=== PATIENT | male | born 1960 | race Two or more races ===

== ENCOUNTER 2020-11-05 08:20 | Outpatient (REF) | payer OTHER, SELFPAY ==
--- NOTE | ~2020-11-05 | XR_ITS ---
EXAMINATION: LUMBAR SPINE, RIGHT HIP, RIGHT RIBS WITH CHEST X-RAY AND RIGHT ELBOW. CLINICAL INFORMATION: Low back pain, right hip pain right rib pain and right elbow pain. COMPARISON: None TECHNIQUE: Lumbar spine 3 views. Right hip 2 views. Right elbow 3 views. Chest and right RIBS 4 views. FINDINGS: Lumbar spine: There is normal lumbar lordosis. There is loss of L5-S1 disc height. Rest the disc heights are normal. The vertebral heights and alignment is normal. There is mild ventral superior endplate spurring at the L4 and L5 vertebra and bridging osteophytes at the L5-S1 and T12-L1 disc levels. Mild anterior superior endplate deformity at L4 vertebra is noted. No visible acute fracture, dislocation or lytic process seen. Right hip: There is a total right hip prosthesis with the prosthetic components in satisfactory alignment. No visible prosthetic loosening seen. The soft tissues are normal. No fracture noted. Chest and right RIBS: The lungs are well-expanded and clear. Heart size and pulmonary vascularity is normal. There is mild spondylosis of dorsal spine. No lytic process seen. Right elbow: There is no visible acute fracture, dislocation or joint effusion. There is moderate posterior elbow joint spurring and posterior olecranon process enthesophyte. XR/XR ribs RT min 3V w CXR1V IMPRESSION: Disc changes L5-S1 disc levels with moderate bridging osteophyte at L5-S1 and T12-L1 disc levels. No visible acute fracture, dislocation or subluxation seen. There is a total right hip prosthesis with prosthetic components in satisfactory alignment. Healing plate and screws for an old healed fracture of the acetabulum is noted. No prosthetic loosening seen. There is no acute fracture or dislocation right elbow. There is degenerative spurring and enthesophyte along the posterior olecranon process. Unremarkable chest exam. Unremarkable right rib exam.
--- NOTE | ~2020-11-05 | XR_ITS ---
EXAMINATION: LUMBAR SPINE, RIGHT HIP, RIGHT RIBS WITH CHEST X-RAY AND RIGHT ELBOW. CLINICAL INFORMATION: Low back pain, right hip pain right rib pain and right elbow pain. COMPARISON: None TECHNIQUE: Lumbar spine 3 views. Right hip 2 views. Right elbow 3 views. Chest and right RIBS 4 views. FINDINGS: Lumbar spine: There is normal lumbar lordosis. There is loss of L5-S1 disc height. Rest the disc heights are normal. The vertebral heights and alignment is normal. There is mild ventral superior endplate spurring at the L4 and L5 vertebra and bridging osteophytes at the L5-S1 and T12-L1 disc levels. Mild anterior superior endplate deformity at L4 vertebra is noted. No visible acute fracture, dislocation or lytic process seen. Right hip: There is a total right hip prosthesis with the prosthetic components in satisfactory alignment. No visible prosthetic loosening seen. The soft tissues are normal. No fracture noted. Chest and right RIBS: The lungs are well-expanded and clear. Heart size and pulmonary vascularity is normal. There is mild spondylosis of dorsal spine. No lytic process seen. Right elbow: There is no visible acute fracture, dislocation or joint effusion. There is moderate posterior elbow joint spurring and posterior olecranon process enthesophyte. XR/XR lumbar spine 2-3V IMPRESSION: Disc changes L5-S1 disc levels with moderate bridging osteophyte at L5-S1 and T12-L1 disc levels. No visible acute fracture, dislocation or subluxation seen. There is a total right hip prosthesis with prosthetic components in satisfactory alignment. Healing plate and screws for an old healed fracture of the acetabulum is noted. No prosthetic loosening seen. There is no acute fracture or dislocation right elbow. There is degenerative spurring and enthesophyte along the posterior olecranon process. Unremarkable chest exam. Unremarkable right rib exam.
--- NOTE | ~2020-11-05 | XR_ITS ---
EXAMINATION: LUMBAR SPINE, RIGHT HIP, RIGHT RIBS WITH CHEST X-RAY AND RIGHT ELBOW. CLINICAL INFORMATION: Low back pain, right hip pain right rib pain and right elbow pain. COMPARISON: None TECHNIQUE: Lumbar spine 3 views. Right hip 2 views. Right elbow 3 views. Chest and right RIBS 4 views. FINDINGS: Lumbar spine: There is normal lumbar lordosis. There is loss of L5-S1 disc height. Rest the disc heights are normal. The vertebral heights and alignment is normal. There is mild ventral superior endplate spurring at the L4 and L5 vertebra and bridging osteophytes at the L5-S1 and T12-L1 disc levels. Mild anterior superior endplate deformity at L4 vertebra is noted. No visible acute fracture, dislocation or lytic process seen. Right hip: There is a total right hip prosthesis with the prosthetic components in satisfactory alignment. No visible prosthetic loosening seen. The soft tissues are normal. No fracture noted. Chest and right RIBS: The lungs are well-expanded and clear. Heart size and pulmonary vascularity is normal. There is mild spondylosis of dorsal spine. No lytic process seen. Right elbow: There is no visible acute fracture, dislocation or joint effusion. There is moderate posterior elbow joint spurring and posterior olecranon process enthesophyte. XR/XR hip RT min 2V IMPRESSION: Disc changes L5-S1 disc levels with moderate bridging osteophyte at L5-S1 and T12-L1 disc levels. No visible acute fracture, dislocation or subluxation seen. There is a total right hip prosthesis with prosthetic components in satisfactory alignment. Healing plate and screws for an old healed fracture of the acetabulum is noted. No prosthetic loosening seen. There is no acute fracture or dislocation right elbow. There is degenerative spurring and enthesophyte along the posterior olecranon process. Unremarkable chest exam. Unremarkable right rib exam.
--- NOTE | ~2020-11-05 | XR_ITS ---
EXAMINATION: LUMBAR SPINE, RIGHT HIP, RIGHT RIBS WITH CHEST X-RAY AND RIGHT ELBOW. CLINICAL INFORMATION: Low back pain, right hip pain right rib pain and right elbow pain. COMPARISON: None TECHNIQUE: Lumbar spine 3 views. Right hip 2 views. Right elbow 3 views. Chest and right RIBS 4 views. FINDINGS: Lumbar spine: There is normal lumbar lordosis. There is loss of L5-S1 disc height. Rest the disc heights are normal. The vertebral heights and alignment is normal. There is mild ventral superior endplate spurring at the L4 and L5 vertebra and bridging osteophytes at the L5-S1 and T12-L1 disc levels. Mild anterior superior endplate deformity at L4 vertebra is noted. No visible acute fracture, dislocation or lytic process seen. Right hip: There is a total right hip prosthesis with the prosthetic components in satisfactory alignment. No visible prosthetic loosening seen. The soft tissues are normal. No fracture noted. Chest and right RIBS: The lungs are well-expanded and clear. Heart size and pulmonary vascularity is normal. There is mild spondylosis of dorsal spine. No lytic process seen. Right elbow: There is no visible acute fracture, dislocation or joint effusion. There is moderate posterior elbow joint spurring and posterior olecranon process enthesophyte. XR/XR elbow RT min 3V IMPRESSION: Disc changes L5-S1 disc levels with moderate bridging osteophyte at L5-S1 and T12-L1 disc levels. No visible acute fracture, dislocation or subluxation seen. There is a total right hip prosthesis with prosthetic components in satisfactory alignment. Healing plate and screws for an old healed fracture of the acetabulum is noted. No prosthetic loosening seen. There is no acute fracture or dislocation right elbow. There is degenerative spurring and enthesophyte along the posterior olecranon process. Unremarkable chest exam. Unremarkable right rib exam.
== END 2020-11-05 08:21 | disposition home or self-care (01) ==
LOC: HO.XRAY 08:20
PROVIDERS: Absent Provider Chiropractor; PCP Student in an Organized Health Care Education/Training Program; Visit Provider Internal Medicine
DX: R07.81 Pleurodynia (principal); M77.01 Medial epicondylitis, right elbow; M54.5 Low back pain; M25.551 Pain in right hip; Z98.890 Other specified postprocedural states
CPT/HCPCS: 71101; 72100; 73080; 73502

== ENCOUNTER 2020-12-30 06:24 | Outpatient (REF) | payer OTHER, SELFPAY ==
[2020-12-30 07:33] LABS: Alanine Aminotransferase 51 U/L (0-40); Albumin Level 4.2 g/dL (3.5-5.0); Alkaline Phosphatase 92 U/L (39-117); Anion Gap 14 (12-20); Aspartate Amino Transferase 33 U/L (5-37); Bilirubin Direct 0.6 mg/dL (0.0-0.5); Bilirubin Total 1.5 mg/dL (0.0-1.0); Blood Urea Nitrogen 16 mg/dL (9-16); Carbon Dioxide 24 mmol/L (22-29); Chloride 105 mmol/L (96-108); Cholesterol 189 mg/dL; Estimated Glomerular Filt Rate > 60; Glucose Random 143 mg/dL (60-115); HDL Cholesterol 70 mg/dL; LDL Cholesterol Calculated 106 mg/dl; Potassium 3.9 mmol/L (3.3-5.1); Sodium 139 mmol/L (135-145); Total Protein 6.8 g/dL (6.5-8.0); Triglycerides 66 mg/dL
== END 2020-12-30 06:25 | disposition home or self-care (01) ==
LOC: HO.LAB 06:24
PROVIDERS: PCP Student in an Organized Health Care Education/Training Program; Visit Provider Student in an Organized Health Care Education/Training Program
DX: I10 Essential (primary) hypertension (principal)
CPT/HCPCS: 36415; 80048; 80061; 80076

== ENCOUNTER 2022-05-21 17:40 | Emergency (ER) | payer OTHER, SELFPAY ==
--- NOTE | ~2022-05-21 | XR_ITS ---
EXAMINATION: BILATERAL KNEE. CLINICAL INFORMATION: Fall, pain. COMPARISON: Bilateral knee 09/07/2012 TECHNIQUE: 4 views each knee. FINDINGS: Right knee: The tricompartment joint space is maintained normal. No bony erosive changes, loose bodies or joint effusion seen. The soft tissues are normal. Left knee: There is no visible acute fracture, dislocation or subluxation. There are no loose bodies. No bony erosive changes. The soft tissues are normal. XR/XR knee RT 4V IMPRESSION: Unremarkable bilateral knee exam.
--- NOTE | ~2022-05-21 | XR_ITS ---
EXAMINATION: BILATERAL KNEE. CLINICAL INFORMATION: Fall, pain. COMPARISON: Bilateral knee 09/07/2012 TECHNIQUE: 4 views each knee. FINDINGS: Right knee: The tricompartment joint space is maintained normal. No bony erosive changes, loose bodies or joint effusion seen. The soft tissues are normal. Left knee: There is no visible acute fracture, dislocation or subluxation. There are no loose bodies. No bony erosive changes. The soft tissues are normal. XR/XR knee LT 4V IMPRESSION: Unremarkable bilateral knee exam.
[2022-05-21 18:32] VITALS: BP 119/116; PULSE 88; RESP 20; TEMP 37.1; O2SAT 98; BMI 28.0
[2022-05-21 19:33] LABS: MANUAL DIFF FLAG NO
[2022-05-21 19:54] LABS: Basophils Percent Auto 0.2 % (0-2); Eosinophils Percent Auto 0.4 % (0-4); Hematocrit 43.2 % (42.0-52.0); Imm Gran Abs Auto 0.05 X10*3/uL (0.00-0.03); Imm Gran Pct Auto 0.5 % (0.0-0.4); Lymphocytes Absolute Auto 1.1 X10*3/uL (1.2-4.9); Lymphocytes Percent Auto 10.9 % (20-40); Mean Corpuscular HGB Conc 34.7 g/dl (31.0-36.0); Mean Corpuscular Hemoglobin 31.8 pg (27.0-33.0); Mean Corpuscular Volume 91.5 fL (80.0-98.0); Mean Platelet Volume 11.6 fL (9.4-12.4); Monocytes Percent Auto 10.1 % (2-11); Neutrophils Absolute Auto 7.7 x10*3/uL (2.0-8.3); Neutrophils Percent Auto 77.9 % (45-73); Platelet Count 131 X10*3/uL (160-400); Red Blood Count 4.72 X10*6/uL (4.60-5.80); Red Cell Distribution Width 10.7 % (11.0-16.0); White Blood Count 9.9 X10*3/uL (4.8-10.8)
[2022-05-21 20:04] LABS: Anion Gap 16 (12-20); Blood Urea Nitrogen 12 mg/dL (9-16); Calcium 9.1 mg/dL (8.4-10.2); Carbon Dioxide 24 mmol/L (22-29); Chloride 102 mmol/L (96-108); Creatinine Clr Calc Pharmacy 94.6; Estimated Glomerular Filt Rate > 60; Glucose Random 102 mg/dL (60-115); Sodium 138 mmol/L (135-145)
[2022-05-21 22:17] VITALS: BP 184/111; PULSE 82; RESP 18; TEMP 36.6; O2SAT 97
--- NOTE | 2022-05-22 01:00 | ED_ITS ---
HPI - Wound/Laceration General Chief Complaint: Wound/Laceration Stated Complaint: fall 05/16/22 possible chemical mcgovern Time Seen by Provider: 05/22/22 00:57 History of Present Illness HPI narrative: Patient is a 61-year-old male status post accidental fall. Patient knees hit the ground. Complaining of increasing redness to an abrasion knees bilaterally. Patient attempted to wash the wound with peroxide and in the wounds got more red and more painful. Patient came in because of the wounds. No difficulty ambulating. Range of motion at the knees were intact. No history of diabetes. Related Data Previous Rx's Medication Instructions Recorded doxycycline hyclate 100 mg capsule 100 mg PO BID cough 7 days #14 caps 05/22/22 Allergies Allergy/AdvReac Type Severity Reaction Status Date / Time Penicillins Allergy Severe SWELLING Unverified 05/21/22 18:32 latex [LATEX] Allergy Intermediate RASH Unverified 05/23/20 17:45 penicillin V Allergy Unknown throat Verified 04/15/20 00:00 swelling Latex Gloves Allergy Unknown throat Uncoded 04/15/20 00:00 swelling Review of Systems Review of Systems: Positive redness, abrasion, pain to bilateral knee. Able to ambulate. Yes all other systems are reviewed and are negative [facility] Past Medical History Attestation statement: The following information was validated with the patient. Surgical History History of arthroplasty of right hip History of esophagogastroduodenoscopy (EGD) Hx of colonoscopy Physical Exam Vital Signs: Vital Signs: Last Vital Signs Temp 97.8 F 05/21/22 22:17 Pulse 82 05/21/22 22:17 Resp 18 05/21/22 22:17 BP 184/111 H 05/21/22 22:17 Pulse Ox 97 05/21/22 22:17 O2 Del Method 05/21/22 22:17 BMI result Body Mass Index 28.0 Appearance: Alert. Oriented X3. No acute distress. Eyes: Pupils equal, round and reactive to light. ENT: Pharynx normal. Neck: Normal inspection. Neck supple. No lymph nodes noted. No crepitus CVS: Normal heart rate and rhythm. Pulses normal. Normal S1 and S2 Respiratory: No respiratory distress. Breath sounds normal. No Wheezing. No rales Abdomen: Soft and nontender. No rigidity. No distention. good BS x4 Skin: Positive redness of bilateral knees. There is multiple abrasions noted. With purulence discharges at the bases. Redness is not circumferential on the right side is slightly below the knee. On the left side is slightly above the knee. Range of motion at the knee was completely intact. Distal pulses intact sensation intact motor intact ambulated well. Extremities: No lower extremity edema. Neurovascular intact to all extremities. No Lacerations. No Rash Neuro: Oriented X 3. No motor deficit. No sensory deficit. Moving all extermities. No slurred speech MDM - Wound/Laceration MDM Narrative Medical decision making narrative: Likely cellulitis of bilateral legs. Patient's white count is normal. He is well appearing is not diabetic. Will start patient on doxycycline. Will have patient follow-up on an outpatient basis. The wound was irrigated marked the area of redness was demarcated. Close follow-up advised patient is in stable Medical Records Attestation: I reviewed the patient's medical records. Lab Data Attestation: I reviewed the patient's lab results. Result diagrams: 05/21/22 19:27 05/21/22 19:27 Labs: Lab Results 05/21/22 05/21/22 Range/Units 19:27 19:27 WBC 9.9 (4.8-10.8) X10*3/uL RBC 4.72 (4.60-5.80) X10*6/uL Hgb 15.0 (14.0-18.0) g/dl Hct 43.2 (42.0-52.0) % MCV 91.5 (80.0-98.0) fL MCH 31.8 (27.0-33.0) pg MCHC 34.7 (31.0-36.0) g/dl RDW 10.7 L (11.0-16.0) % Plt Count 131 L (160-400) X10*3/uL MPV 11.6 (9.4-12.4) fL Immature Gran % (Auto) 0.5 H (0.0-0.4) % Neut % (Auto) 77.9 H (45-73) % Lymph % (Auto) 10.9 L (20-40) % [place] % (Auto) 10.1 (2-11) % Eos % (Auto) 0.4 (0-4) % Baso % (Auto) 0.2 (0-2) % Lymph # (Auto) 1.1 L (1.2-4.9) X10*3/uL [place] # (Auto) 1.0 (0.1-1.2) X10*3/uL Eos # (Auto) 0.0 (0.0-0.4) X10*3/uL Baso # (Auto) 0.0 (0.0-0.2) X10*3/uL Abs Immat Gran (auto) 0.05 H (0.00-0.03) X10*3/uL Absolute Neuts (auto) 7.7 (2.0-8.3) x10*3/uL Absolute Nucleated RBC 0.000 (0.0-0.012) X10*3/uL Nucleated RBC % (auto) 0.0 (0.0-0.2) /100WBC Sodium 138 (135-145) mmol/L Potassium 4.0 (3.3-5.1) mmol/L Chloride 102 (96-108) mmol/L Carbon Dioxide 24 (22-29) mmol/L Anion Gap 16 (12-20) BUN 12 (9-16) mg/dL Creatinine 0.82 (0.5-1.4) mg/dL Estim Creat Clear Calc 94.6 Estimated GFR > 60 Random Glucose 102 (60-115) mg/dL Calcium 9.1 (8.4-10.2) mg/dL Discharge Plan Discharge Clinical Impression: Cellulitis Patient Disposition: Home, Self-Care Instructions: Cellulitis (ED) Prescriptions: New doxycycline hyclate 100 mg capsule 100 mg PO BID 7 Days Qty: 14 0RF Referrals: Jyoti Apple MD [Primary Care Provider] - Print Language: Yakut
== END 2022-05-22 02:08 | disposition home or self-care (01) ==
PROVIDERS: Emergency Provider Emergency Medicine Emergency Medical Services; PCP Student in an Organized Health Care Education/Training Program
DX: L03.116 Cellulitis of left lower limb (principal); L03.115 Cellulitis of right lower limb; S80.212A Abrasion, left knee, initial encounter; S80.211A Abrasion, right knee, initial encounter; W19.XXXA Unspecified fall, initial encounter; Y93.9 Activity, unspecified; Y92.9 Unspecified place or not applicable; Y99.9 Unspecified external cause status
CPT/HCPCS: 36415; 73564; 80048; 85025; 87040; 99282; 99283

== ENCOUNTER 2023-12-22 09:21 | Outpatient (REF) | payer OTHER, SELFPAY ==
[2023-12-22 15:37] LABS: Anion Gap 11 (12-20); Blood Urea Nitrogen 10 mg/dL (9-16); Carbon Dioxide 26 mmol/L (22-29); Chloride 103 mmol/L (96-108); Estimated Glomerular Filt Rate > 60; Glucose Random 121 mg/dL (60-115); Potassium 3.2 mmol/L (3.3-5.1); Sodium 137 mmol/L (135-145)
== END 2023-12-22 09:22 | disposition home or self-care (01) ==
LOC: HO.CHCLDS 09:21
PROVIDERS: Visit Provider Student in an Organized Health Care Education/Training Program
DX: I16.0 Hypertensive urgency (principal)
CPT/HCPCS: 36415; 80048

== ENCOUNTER 2024-01-04 10:07 | Outpatient (AMB) | payer OTHER, SELFPAY ==
[2024-01-04 10:06] VITALS: BP 152/80; PULSE 84; O2SAT 96
--- NOTE | 2024-01-04 10:06 | HO.NEPHOV_ITS ---
Vital Signs 01/04/24 10:06 Weight 175 lb BP 152/80 H Blood Pressure Location Rt brachial Position Sitting Pulse 84 Pulse Source Pulse Oximeter Pulse Oximetry (%) 96 Oxygen Delivery Method Room Air Intake Visit Reasons: Asymptomatic microscopic hematuria/ Confirmed Pharmaceutical Process Engineer Required: Yes Pharmaceutical Process Engineer Name: Alea [id number] Accompanied by: MACHINE GROUP LEADER Allergies Penicillins Allergy (Severe, Verified 01/04/24 10:10) SWELLING latex [LATEX] Allergy (Intermediate, Verified 01/04/24 10:10) RASH penicillin V Allergy (Unknown, Verified 01/04/24 10:10) throat swelling Latex Gloves Allergy (Unknown, Uncoded 05/22/22 01:38) throat swelling HPI Comments Details: Saran is a pleasant middle-aged man with a history of hypertension. Recently he had accelerated hypertension and compliance has been an issue. He has been referred for evaluation of hypertension and microscopic hematuria. He has no gross hematuria. No pain during urination. No history of kidney stones. No leg edema. No shortness of breath. No nausea vomiting. No rash. No joint pain. All other systems were reviewed. He does not smoke. He drinks 3-6 cans of beer almost every day. Pharmaceutical Process Engineer service was used. [facility], [facility] Surgical History Hx of colonoscopy History of arthroplasty of right hip History of esophagogastroduodenoscopy (EGD) Physical Exam Vital Signs: Last Vital Signs Pulse 84 01/04/24 10:06 BP 152/80 H 01/04/24 10:06 Pulse Ox 96 01/04/24 10:06 Oxygen Delivery Method Room Air 01/04/24 10:06 Const General: comfortable Nutritional Appearance: well nourished Orientation/consciousness: patient oriented x3 HEENT Head: No normal to inspection Mouth: moist mucous membranes Neck Neck: Yes supple and Yes no JVD Resp Auscultation: clear to auscultation bilaterally, no rales and rub present Cardio Jugular venous distension: no JVD Palpation: no palpable S3 and no palpable S4 Heart sounds: no rubs GI Palpation (GI): Soft to palpation and nontender Percussion: No Fluid wave present General: Yes no CVA tenderness Back/Spine/Pelvis Back: no CVA tenderness Skin General skin exam: no rashes or lesions noted Neuro General: patient oriented x3 Extrem General: Yes no pedal edema and No clubbing Results Reviewed Nephrology Results: Hgb 15.0 g/dl (14.0-18.0) 05/21/22 WBC 9.9 X10*3/uL (4.8-10.8) 05/21/22 Plt Count 131 X10*3/uL (160-400) L 05/21/22 Sodium 137 mmol/L (135-145) 12/22/23 Potassium 3.2 mmol/L (3.3-5.1) L 12/22/23 Chloride 103 mmol/L (96-108) 12/22/23 Carbon Dioxide 26 mmol/L (22-29) 12/22/23 BUN 10 mg/dL (9-16) 12/22/23 Creatinine 0.85 mg/dL (0.5-1.4) 12/22/23 Calcium 9.0 mg/dL (8.4-10.2) 12/22/23 Urine Protein NEG (NEG - TRACE) 06/13/19 Assessment & Plan Assessment & Plan (1) Hematuria: Code(s): R31.9 - Hematuria, unspecified Category: Medical (2) HTN (hypertension): Code(s): I10 - Essential (primary) hypertension Category: Medical Plan Saran is a 63-year-old man with a history of longstanding hypertension with microscopic hematuria. I have initiated a workup including routine urinalysis along with urine protein creatinine ratio and basic serologies. Obtain renal ultrasonogram. Encouraged him to stay on low-sodium diet He should cut back on alcohol intake. He will keep him on the current antihypertensive regimen and asked him to bring all his medications when he returns in the next few weeks. He would need further workup for the resistant hypertension once the compliance issue is resolved. Orders: Orders UA and rflx microscopic Today R31.9 - Hematuria, unspecified Total Protein Urine Random Today R31.9 - Hematuria, unspecified Protein Electrophoresis, Serum Today R31.9 - Hematuria, unspecified US renal BI Today R31.9 - Hematuria, unspecified Comprehensive Met. Panel Today N18.9 - Chronic kidney disease, unspecified, R31.9 - Hematuria, unspecified Creatinine Urine Today N05.9 - Unspecified nephritic syndrome with unspecified morphologic changes, R31.9 - Hematuria, unspecified Complete Blood Count Auto Diff Today N18.30 - Chronic kidney disease, stage 3 unspecified, R31.9 - Hematuria, unspecified Anti Glomerular Basement Memb Today R31.9 - Hematuria, unspecified Medications: Discontinued doxycycline hyclate Discontinued Reason: Patient no longer taking 100 mg PO BID 7 days 14 caps 0RF cough Coding Level of Care Code New Pt Level 4 (14647) Diagnoses Hematuria R31.9 HTN (hypertension) I10
== END 2024-01-04 10:31 | disposition home or self-care (01) ==
PROVIDERS: PCP Student in an Organized Health Care Education/Training Program; Referring Provider Student in an Organized Health Care Education/Training Program; Visit Provider Internal Medicine Hypertension Specialist
DX: R31.9 Hematuria, unspecified (principal); I10 Essential (primary) hypertension
CPT/HCPCS: 99204

== ENCOUNTER → 2024-01-04 10:07 | Outpatient (BNVA) | payer OTHER, SELFPAY | PROVIDERS: PCP Student in an Organized Health Care Education/Training Program; Referring Provider Student in an Organized Health Care Education/Training Program; Visit Provider Internal Medicine Hypertension Specialist | DX: R31.9 Hematuria, unspecified (principal); I10 Essential (primary) hypertension | CPT/HCPCS: 99202 ==

== ENCOUNTER 2024-01-07 13:24 | Outpatient (REF) | payer OTHER, SELFPAY ==
--- NOTE | ~2024-01-07 | US_ITS ---
EXAMINATION: US RETROPERITONEAL LIMITED (RENAL ONLY) CLINICAL INFORMATION: Hematuria, unspecified. COMPARISON: Ultrasound renal 12/08/2013. TECHNIQUE: Real-time imaging of the kidneys. Limited visualization due to bowel gas. FINDINGS: RIGHT KIDNEY: 12.1 x 5.7 x 4.4 cm (SAG x AP x TRV). No hydronephrosis. No renal calculi. Renal cortical thickness is normal. Limited visualization. LEFT KIDNEY: 11.1 x 5.0 x 4.2 cm (SAG x AP x TRV). No hydronephrosis. No renal calculi. Renal cortical thickness is normal. Limited visualization. US/US renal BI IMPRESSION: No hydronephrosis. No renal calculi. Renal cortical thickness is normal. Limited visualization. CT scan should be considered for further evaluation for this patient with hematuria, based on the clinical assessment.
== END 2024-01-07 13:25 | disposition home or self-care (01) ==
LOC: HO.US 13:24
PROVIDERS: PCP Student in an Organized Health Care Education/Training Program; Visit Provider Internal Medicine Hypertension Specialist
DX: R31.9 Hematuria, unspecified (principal)
CPT/HCPCS: 76775

== ENCOUNTER 2024-01-28 08:22 | Outpatient (REF) | payer OTHER, SELFPAY ==
[2024-01-28 08:37] LABS: MANUAL DIFF FLAG NO
[2024-01-28 09:18] LABS: Basophils Percent Auto 0.4 % (0-2); Eosinophils Absolute Auto 0.1 X10*3/uL (0.0-0.4); Eosinophils Percent Auto 1.4 % (0-4); Hematocrit 44.5 % (42.0-52.0); Hemoglobin 16.3 g/dl (14.0-18.0); Imm Gran Abs Auto 0.02 X10*3/uL (0.00-0.03); Imm Gran Pct Auto 0.4 % (0.0-0.4); Lymphocytes Absolute Auto 1.2 X10*3/uL (1.2-4.9); Lymphocytes Percent Auto 23.1 % (20-40); Mean Corpuscular HGB Conc 36.6 g/dl (31.0-36.0); Mean Corpuscular Hemoglobin 33.3 pg (27.0-33.0); Mean Platelet Volume 11.5 fL (9.4-12.4); Monocytes Absolute Auto 0.6 X10*3/uL (0.1-1.2); Monocytes Percent Auto 11.7 % (2-11); Neutrophils Absolute Auto 3.3 x10*3/uL (2.0-8.3); Platelet Count 124 X10*3/uL (160-400); Red Blood Count 4.89 X10*6/uL (4.60-5.80); Red Cell Distribution Width 11.5 % (11.0-16.0); White Blood Count 5.2 X10*3/uL (4.8-10.8)
[2024-01-28 09:34] LABS: Appearance Urine Clear; Color Urine Yellow; Glucose Urine UA 500 mg/dL (Negative); Leukocyte Esterase Urine Negative (Negative); Nitrite Urine Negative (Negative); Urine Blood Negative (Negative); Urine Ketones Negative (Negative); Urine Protein Negative (Neg-Trace)
[2024-01-28 09:57] LABS: Alanine Aminotransferase 28 U/L (0-40); Albumin Level 4.4 g/dL (3.5-5.0); Alkaline Phosphatase 95 U/L (39-117); Anion Gap 11 (12-20); Aspartate Amino Transferase 24 U/L (5-37); Bilirubin Total 1.3 mg/dL (0.0-1.0); Blood Urea Nitrogen 10 mg/dL (9-16); Calcium 9.1 mg/dL (8.4-10.2); Carbon Dioxide 26 mmol/L (22-29); Chloride 105 mmol/L (96-108); Estimated Glomerular Filt Rate > 60; Glucose Random 156 mg/dL (60-115); Sodium 138 mmol/L (135-145); Total Protein 7.2 g/dL (6.5-8.0)
[2024-01-28 10:15] LABS: Creatinine Urine 104.93 mg/dL; Total Protein Urine Random 11 mg/dL (<12)
[2024-02-01 17:39] LABS: Anti Glomerular Basement Memb <1.0 AI
[2024-02-01 22:38] LABS: Prot Elec - Albumin 4.4 g/dL (3.8-4.8); Prot Elec - Alpha1 0.2 g/dL (0.2-0.3); Prot Elec - Alpha2 0.5 g/dL (0.5-0.9); Prot Elec - Beta 1 0.4 g/dL (0.4-0.6); Prot Elec - Beta 2 0.5 g/dL (0.2-0.5); Prot Elec - Gamma 0.9 g/dL (0.8-1.7)
== END 2024-01-28 08:23 | disposition home or self-care (01) ==
LOC: HO.LAB 08:22
PROVIDERS: PCP Student in an Organized Health Care Education/Training Program; Visit Provider Internal Medicine Hypertension Specialist
DX: R31.9 Hematuria, unspecified (principal); N05.9 Unspecified nephritic syndrome with unspecified morphologic changes; N18.30 Chronic kidney disease, stage 3 unspecified
CPT/HCPCS: 36415; 80053; 81003; 82570; 83520; 84156; 84165; 85025

== ENCOUNTER 2024-02-01 10:14 | Outpatient (AMB) | payer OTHER, SELFPAY ==
[2024-02-01 10:16] VITALS: BP 188/100; PULSE 83; O2SAT 96
--- NOTE | 2024-02-01 10:16 | HO.NEPHOV ---
Vital Signs 02/01/24 10:16 Weight 175 lb BP 188/100 H Blood Pressure Location Lt brachial Position Sitting Pulse 83 Pulse Source Pulse Oximeter Pulse Oximetry (%) 96 Oxygen Delivery Method Room Air Intake Visit Reasons: HTN / 3-4 weeks fu/ LVM Management Accountant Required: Yes Management Accountant Name: Sam Vaughan Accompanied by: Spouse Allergies Penicillins Allergy (Severe, Verified 02/01/24 10:18) SWELLING latex [LATEX] Allergy (Intermediate, Verified 02/01/24 10:18) RASH penicillin V Allergy (Unknown, Verified 02/01/24 10:18) throat swelling Latex Gloves Allergy (Unknown, Uncoded 05/22/22 01:38) throat swelling HPI Comments Details: Saran is a pleasant middle-aged man with a history of hypertension. Recently he had accelerated hypertension and compliance has been an issue. He has been referred for evaluation of hypertension and microscopic hematuria. He has no gross hematuria. No pain during urination. No history of kidney stones. No leg edema. No shortness of breath. No nausea vomiting. No rash. No joint pain. All other systems were reviewed. He does not smoke. He drinks 3-6 cans of beer almost every day. Management Accountant service was used. 02/01/2024. Overall doing well. He did not take his antihypertensive medication today. He is cut down beer intake to 2 cans per day. [facility] Surgical History Hx of colonoscopy History of arthroplasty of right hip History of esophagogastroduodenoscopy (EGD) Physical Exam Vital Signs: Last Vital Signs Pulse 83 02/01/24 10:16 BP 188/100 H 02/01/24 10:16 Pulse Ox 96 02/01/24 10:16 Oxygen Delivery Method Room Air 02/01/24 10:16 Const General: comfortable Nutritional Appearance: well nourished Orientation/consciousness: patient oriented x3 HEENT Head: No normal to inspection Mouth: moist mucous membranes Neck Neck: Yes supple and Yes no JVD Resp Auscultation: clear to auscultation bilaterally, no rales and rub present Cardio Jugular venous distension: no JVD Palpation: no palpable S3 and no palpable S4 Heart sounds: no rubs GI Palpation (GI): Soft to palpation and nontender Percussion: No Fluid wave present General: Yes no CVA tenderness Back/Spine/Pelvis Back: no CVA tenderness Skin General skin exam: no rashes or lesions noted Neuro General: patient oriented x3 Extrem General: Yes no pedal edema and No clubbing Results Reviewed Results Reviewed: Renal ultrasonogram in 01/24/2024 No hydronephrosis. No renal calculi. Renal cortical thickness is normal. Limited visualization Nephrology Results: Hgb 16.3 g/dl (14.0-18.0) 01/28/24 WBC 5.2 X10*3/uL (4.8-10.8) 01/28/24 Plt Count 124 X10*3/uL (160-400) L 01/28/24 Sodium 138 mmol/L (135-145) 01/28/24 Potassium 4.0 mmol/L (3.3-5.1) 01/28/24 Chloride 105 mmol/L (96-108) 01/28/24 Carbon Dioxide 26 mmol/L (22-29) 01/28/24 BUN 10 mg/dL (9-16) 01/28/24 Creatinine 0.85 mg/dL (0.5-1.4) 01/28/24 Calcium 9.1 mg/dL (8.4-10.2) 01/28/24 Urine Protein Negative mg/dL (Neg-Trace) 01/28/24 Urine Creatinine 104.93 mg/dL 01/28/24 Renal US 01/07/24 Assessment & Plan Assessment & Plan (1) Hematuria: Code(s): R31.9 - Hematuria, unspecified Category: Medical (2) HTN (hypertension): Code(s): I10 - Essential (primary) hypertension Category: Medical Plan Saran is a 63-year-old man with a history of longstanding hypertension with microscopic hematuria. Urinalysis did not reveal any hematuria or proteinuria Urinalysis revealed glycosuria. Blood sugar was 156 millimoles He Could have new onset diabetes mellitus. I will recheck his blood sugar fasting along with the A1c. Blood pressure is elevated today. He did not take his medication today. Encouraged him to stay on low-sodium diet He should cut back on alcohol intake. Discussed importance of compliance. Orders: Orders Hemoglobin A1c 1 Week I10 - Essential (primary) hypertension, R73.9 - Hyperglycemia, unspecified Basic Metabolic Panel 1 Week I10 - Essential (primary) hypertension, R73.9 - Hyperglycemia, unspecified Coding Level of Care Code Est Pt Level 4 (36090) Diagnoses Hematuria R31.9 HTN (hypertension) I10
== END 2024-02-01 10:33 | disposition home or self-care (01) ==
PROVIDERS: PCP Student in an Organized Health Care Education/Training Program; Visit Provider Internal Medicine Hypertension Specialist
DX: R31.9 Hematuria, unspecified (principal); I10 Essential (primary) hypertension
CPT/HCPCS: 99214

== ENCOUNTER → 2024-02-01 10:14 | Outpatient (BNVA) | payer OTHER, SELFPAY | PROVIDERS: PCP Student in an Organized Health Care Education/Training Program; Visit Provider Internal Medicine Hypertension Specialist | DX: R31.9 Hematuria, unspecified (principal); I10 Essential (primary) hypertension | CPT/HCPCS: 99212 ==

== ENCOUNTER 2024-02-11 07:55 | Outpatient (REF) | payer OTHER, SELFPAY ==
[2024-02-11 09:04] LABS: Estimated Average Glucose 103 mg/dL; Hemoglobin A1c % 5.2 % (<6.0)
[2024-02-11 09:42] LABS: Anion Gap 14 (12-20); Blood Urea Nitrogen 10 mg/dL (9-16); Calcium 9.4 mg/dL (8.4-10.2); Carbon Dioxide 26 mmol/L (22-29); Chloride 104 mmol/L (96-108); Estimated Glomerular Filt Rate > 60; Glucose Random 126 mg/dL (60-115); Sodium 140 mmol/L (135-145)
== END 2024-02-11 07:56 | disposition home or self-care (01) ==
LOC: HO.LAB 07:55
PROVIDERS: PCP Student in an Organized Health Care Education/Training Program; Visit Provider Internal Medicine Hypertension Specialist
DX: R73.9 Hyperglycemia, unspecified (principal); I10 Essential (primary) hypertension
CPT/HCPCS: 36415; 80048; 83036

== ENCOUNTER 2024-02-14 12:00 | Outpatient (AMB) | payer OTHER, SELFPAY ==
[2024-02-14 12:02] VITALS: BP 154/90; PULSE 78; O2SAT 97
--- NOTE | 2024-02-14 12:02 | HO.NEPHOV ---
Vital Signs 02/14/24 12:02 Weight 173 lb BP 154/90 H Blood Pressure Location Lt brachial Position Sitting Pulse 78 Pulse Source Pulse Oximeter Pulse Oximetry (%) 97 Oxygen Delivery Method Room Air Intake Visit Reasons: 2wks follow up/ Conf Venetian Blind Cleaner And Repairer Required: Yes Venetian Blind Cleaner And Repairer Name: Hortencia [id number] Accompanied by: Spouse Allergies Penicillins Allergy (Severe, Verified 02/14/24 12:04) SWELLING latex [LATEX] Allergy (Intermediate, Verified 02/14/24 12:04) RASH penicillin V Allergy (Unknown, Verified 02/14/24 12:04) throat swelling Latex Gloves Allergy (Unknown, Uncoded 05/22/22 01:38) throat swelling HPI Comments Details: Saran is a pleasant middle-aged man with a history of hypertension. Recently he had accelerated hypertension and compliance has been an issue. He has been referred for evaluation of hypertension and microscopic hematuria. He has no gross hematuria. No pain during urination. No history of kidney stones. No leg edema. No shortness of breath. No nausea vomiting. No rash. No joint pain. All other systems were reviewed. He does not smoke. He drinks 3-6 cans of beer almost every day. [employer]ian Blind Cleaner And Repairer service was used. 02/01/2024. Overall doing well. He did not take his antihypertensive medication today. He is cut down beer intake to 2 cans per day. [facility] Surgical History Hx of colonoscopy History of arthroplasty of right hip History of esophagogastroduodenoscopy (EGD) Physical Exam Vital Signs: Last Vital Signs Pulse 78 02/14/24 12:02 BP 154/90 H 02/14/24 12:02 Pulse Ox 97 02/14/24 12:02 Oxygen Delivery Method Room Air 02/14/24 12:02 Const General: comfortable Nutritional Appearance: well nourished Orientation/consciousness: patient oriented x3 HEENT Head: No normal to inspection Mouth: moist mucous membranes Neck Neck: Yes supple and Yes no JVD Resp Auscultation: clear to auscultation bilaterally and no rales Cardio Jugular venous distension: no JVD Palpation: no palpable S3 and no palpable S4 Heart sounds: no rubs GI Palpation (GI): Soft to palpation and nontender Percussion: No Fluid wave present General: Yes no CVA tenderness Back/Spine/Pelvis Back: no CVA tenderness Skin General skin exam: no rashes or lesions noted Neuro General: patient oriented x3 Extrem General: Yes no pedal edema and No clubbing Results Reviewed Nephrology Results: Hgb 16.3 g/dl (14.0-18.0) 01/28/24 WBC 5.2 X10*3/uL (4.8-10.8) 01/28/24 Plt Count 124 X10*3/uL (160-400) L 01/28/24 Sodium 140 mmol/L (135-145) 02/11/24 Potassium 4.0 mmol/L (3.3-5.1) 02/11/24 Chloride 104 mmol/L (96-108) 02/11/24 Carbon Dioxide 26 mmol/L (22-29) 02/11/24 BUN 10 mg/dL (9-16) 02/11/24 Creatinine 0.94 mg/dL (0.5-1.4) 02/11/24 Calcium 9.4 mg/dL (8.4-10.2) 02/11/24 Urine Protein Negative mg/dL (Neg-Trace) 01/28/24 Urine Creatinine 104.93 mg/dL 01/28/24 Renal US 01/07/24 Assessment & Plan Assessment & Plan (1) Hematuria: Code(s): R31.9 - Hematuria, unspecified Category: Medical (2) HTN (hypertension): Code(s): I10 - Essential (primary) hypertension Category: Medical Plan Saran is a 63-year-old man with a history of longstanding hypertension with microscopic hematuria. Urinalysis did not reveal any hematuria or proteinuria Urinalysis revealed glycosuria. Blood sugar was 156 millimoles Repeat Glucose was 126 with A1C of 5.2% Blood pressure is elevated today. DC HCTZ and replace with Aldactazide 25/25 one a day - 02/14/24 Encouraged him to stay on low-sodium diet He should cut back on alcohol intake. Discussed importance of compliance. Orders: Orders Basic Metabolic Panel 2 Weeks I10 - Essential (primary) hypertension Medications: New spironolacton-hydrochlorothiaz 25-25 mg 1 tab PO DAILY 90 tabs 1RF Coding Level of Care Code Est Pt Level 4 (31367) Diagnoses Hematuria R31.9 HTN (hypertension) I10
== END 2024-02-14 12:17 | disposition home or self-care (01) ==
PROVIDERS: PCP Student in an Organized Health Care Education/Training Program; Visit Provider Internal Medicine Hypertension Specialist
DX: R31.9 Hematuria, unspecified (principal); I10 Essential (primary) hypertension
CPT/HCPCS: 99214

== ENCOUNTER → 2024-02-14 12:00 | Outpatient (BNVA) | payer OTHER, SELFPAY | PROVIDERS: PCP Student in an Organized Health Care Education/Training Program; Visit Provider Internal Medicine Hypertension Specialist | DX: R31.9 Hematuria, unspecified (principal); I10 Essential (primary) hypertension | CPT/HCPCS: 99212 ==

== ENCOUNTER 2024-02-15 10:44 | Outpatient (AMB) | payer OTHER, SELFPAY ==
--- NOTE | 2024-02-15 10:45 | MHC.OFFVIS ---
Vital Signs 02/15/24 10:55 Height 5 ft 5 in Weight 173 lb 4.533 oz BMI 28.8 BP 138/86 Blood Pressure Location Rt brachial Position Sitting Pulse 80 Pulse Source Pulse Oximeter Pulse Oximetry (%) 96 Oxygen Delivery Method Room Air Intake Visit Reasons: Colonoscopy Screening Intake Note: Saran presents in office today as a new pt, for a colo s/p scrn CC; Pt reports that he has previously had a procedure (approximately 5 years ago) and he had some polyps removed. Director College Required: Yes Director College Name: [id number] Nathaly Allergies Penicillins Allergy (Severe, Verified 02/15/24 10:54) SWELLING latex [LATEX] Allergy (Intermediate, Verified 02/15/24 10:54) RASH penicillin V Allergy (Unknown, Verified 02/15/24 10:54) throat swelling Latex Gloves Allergy (Unknown, Uncoded 05/22/22 01:38) throat swelling HPI HPI Colonoscopy Screening: Details: UPPER ENDOSCOPY AND COLONOSCOPY JUNE OF 2019 Findings: Larynx: normal Esophagus: GE junction at 38 cm. irregular Z line, bx taken to r/o barretts Stomach: Mild gastric nodularity. Biopsies were obtained. Grade 2 flap valve on retroflexed examination of the cardia. Duodenum: Normal bulb and descending duodenum Intervention: Biopsies as noted above Colonoscopy Instrument: Olympus PCF H 180AL variable stiffness pediatric colonoscope Monitoring: Vital signs and clinical assessment, continuous EKG monitoring, Pulse oximetry, Carbon Dioxide monitoring and blood pressure monitoring were done throughout the procedure. Colon withdrawal time was 12 minutes. Procedure: The patient was placed in the left lateral decubitis position and pre-procedure medications were administered. After a digital rectal examination of the ano-rectum, the video colonoscope was inserted into the rectum and advanced through the colon to the cecum and terminal ileum. The colonoscope was slowly withdrawn in a retrograde panoramic fashion and the colon mucosa was carefully examined including a retroflexed view of the rectum. Findings and interventions are described below. Procedure Difficulty: Without difficulty Findings: Terminal Ileum ? Normal Cecum ? 6-7 mm sessile polyp in cecum removed with biopsy forceps Ascending Colon ? normal Transverse Colon - normal Descending Colon ? 6-7 mm sessile polyp removed piece meal with biopsy forceps Sigmoid Colon ? diverticular disease noted, mild- to moderate Rectum ? 5-6 mm sessile polyp removed with biopsy forceps Anorectum - retrofelxion with small internal hemorrhoids Colon preparation: Fair to good Impression and Post Procedure Diagnosis: Plan: Await pathology results Repeat colonoscopy in 6-12 months high fiber diet repeat EGD might be needed depending on path TODAY'S VISIT 63 year old? male here today for pre colonoscopy screening.? Patient was sent to us by his PCP.? Last colonoscopy 5 years ago. ? Patient denies any gastrointestinal symptoms in the past or at present.? Patient had suboptimal prep last procedure and was supposed to return for colorectal screening in 6-12 months. Patient had repeated upper endoscopy and no colonoscopy 6 months after his last colonoscopy and upper endoscopy. Suspicion of Barretts, biopsy without intestinal metaplasia. Patient denies any family history of CRC..? Denies history of difficulty with sedation or anesthesia in the past.? Negative for history of sleep apnea.? Denies any history of cardiac, renal, pulmonary, or hepatic disease.?? No history of infectious? diseases like hepatitis A, B, C, HIV or tuberculosis.? Patient is not on any anticoagulation. Patient is taking lisinopril daily. Currently is taking omeprazole and has been for over 5 years. Patient will also need to go for upper endoscopy. [facility] Surgical History Hx of colonoscopy History of arthroplasty of right hip History of esophagogastroduodenoscopy (EGD) Review of Systems Const Denies weight gain and Denies weight loss ENT Reports no additional complaints, Denies dysphagia and Denies odynophagia Card Reports no additional complaints Resp Reports no additional complaints GI Denies abdominal pain, Denies belching, Denies melena, Denies bloating, Denies change in bowel habits, Denies dysphagia, Denies excessive flatus, Denies dyspepsia, Denies heartburn, Denies diarrhea, Denies loose stools, Denies nausea, Denies odynophagia and Denies vomiting Reports no additional complaints Musc Reports no additional complaints Neuro Reports no additional complaints Psych Reports no additional complaints Endo Reports no additional complaints Physical Exam Vital Signs: Last Vital Signs Pulse 80 02/15/24 10:55 BP 138/86 02/15/24 10:55 Pulse Ox 96 02/15/24 10:55 Oxygen Delivery Method Room Air 02/15/24 10:55 BMI result Body Mass Index 28.8 Const General: healthy appearing, no acute distress and well developed Nutritional Appearance: well nourished Orientation/consciousness: patient oriented x3 Resp Effort & Inspection: normal respiratory effort, able to speak in complete sentences, no tracheal deviation and symmetric chest movement Auscultation: clear to auscultation bilaterally Cardio Rate: regular rate GI Inspection: Yes normal to inspection and No distended Palpation (GI): Soft to palpation, not firm, nontender and No hepatosplenomegaly present Auscultation: normal bowel sounds General: Yes no CVA tenderness Back/Spine/Pelvis Back: no CVA tenderness Skin General skin exam: elasticity normal, turgor normal and dry skin Neuro General: patient oriented x3 Psych Appearance: grossly normal Mental Status: mental status grossly normal Speech and movement: Normal speech and movement present Assessment & Plan Assessment & Plan (1) Screen for colon cancer: Code(s): Z12.11 - Encounter for screening for malignant neoplasm of colon (2) 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 However patient is on omeprazole and has been on it for over 5 years will send him for upper endoscopy. Suspicion for Barretts last colonoscopy without dysplasia. Mild inflammation chronic found in GE junction. Denies any issues with anesthesia in the past.? Denies any history of sleep apnea.? No history infectious diseases in the past or present.? Patient had suboptimal prep last procedure and will need to take Dulcolax for 1 week before procedure. Patient is on lisinopril. Not on any anticoagulation therapy.? Discussed at length the pre-procedure,? prep, diet & medications as well as what to expect prior, during and after the procedure.?? Stressed the importance of good bowel prep.? Recommended the use of Vaseline or Calmoseptine OTC & baby wipes with bowel movements to promote comfort.? ?Patient verbalizes understanding and agrees to plan of care.? He was given the opportunity to ask questions and all questions answered.? We will see him after the procedure.? Medications: New bisacodyl (Dulcolax (bisacodyl)) Start taking 2 tablet every night 7 days before the procedure and 1 day before procedure take 4 tablets at noon time followed by MiraLax prep 10 mg (2 x 5 mg) PO BEDTIME 16 tabs 0RF Z12.11 - Encounter for screening for malignant neoplasm of colon polyethylene glycol 3350 (Miralax) As directed by gastroenterology department at [facility] 238 grams PO ONCE 238 grams 0RF Z12.11 - Encounter for screening for malignant neoplasm of colon Coding Level of Care Code New Pt Level 3 (66827) Diagnoses Screen for colon cancer Z12.11 Reinoso's esophagus without dysplasia K22.70 Reinoso's esophagus type: without dysplasia Gastroesophageal reflux disease, unspecified whether esophagitis present K21.9 Esophagitis presence: esophagitis presence not specified Time Spent (min) 40 Comment 30 minutes spent with patient and additional 10 minutes spent reviewing his records
[2024-02-15 10:55] VITALS: BP 138/86; PULSE 80; O2SAT 96; BMI 28.8
== END 2024-02-15 11:40 | disposition home or self-care (01) ==
PROVIDERS: PCP Student in an Organized Health Care Education/Training Program; Visit Provider Nurse Practitioner Family
DX: K21.9 Gastro-esophageal reflux disease without esophagitis (principal); Z12.11 Encounter for screening for malignant neoplasm of colon
CPT/HCPCS: 99203

== ENCOUNTER → 2024-02-15 10:44 | Outpatient (BNVA) | payer OTHER, SELFPAY | PROVIDERS: PCP Student in an Organized Health Care Education/Training Program; Visit Provider Nurse Practitioner Family | DX: Z12.11 Encounter for screening for malignant neoplasm of colon (principal); K22.70 Barrett's esophagus without dysplasia; K21.9 Gastro-esophageal reflux disease without esophagitis | CPT/HCPCS: 99202 ==

== ENCOUNTER 2024-03-16 07:49 | Outpatient (REF) | payer OTHER, SELFPAY ==
[2024-03-16 09:02] LABS: Anion Gap 12 (12-20); Blood Urea Nitrogen 12 mg/dL (9-16); Calcium 9.6 mg/dL (8.4-10.2); Carbon Dioxide 27 mmol/L (22-29); Chloride 105 mmol/L (96-108); Estimated Glomerular Filt Rate > 60; Glucose Random 131 mg/dL (60-115); Sodium 140 mmol/L (135-145)
== END 2024-03-16 07:50 | disposition home or self-care (01) ==
LOC: HO.LAB 07:49
PROVIDERS: PCP Student in an Organized Health Care Education/Training Program; Visit Provider Internal Medicine Hypertension Specialist
DX: I10 Essential (primary) hypertension (principal); R31.29 Other microscopic hematuria
CPT/HCPCS: 36415; 80048; 99212

== ENCOUNTER 2024-03-16 11:59 | Outpatient (AMB) | payer OTHER, SELFPAY ==
[2024-03-16 12:03] VITALS: BP 110/78; PULSE 74; O2SAT 96; BMI 28.3
--- NOTE | 2024-03-16 12:03 | HO.NEPHOV ---
Vital Signs 03/16/24 12:03 Height 5 ft 5 in Weight 170 lb BMI 28.3 BP 110/78 Blood Pressure Location Rt brachial Position Sitting Pulse 74 Pulse Source Pulse Oximeter Pulse Oximetry (%) 96 Oxygen Delivery Method Room Air Intake Visit Reasons: [facility] 03/14 appt/ Conf Felting Machine Operator Required: Yes Felting Machine Operator Name: [id number] Accompanied by: Spouse Allergies Penicillins Allergy (Severe, Verified 03/16/24 12:05) SWELLING latex [LATEX] Allergy (Intermediate, Verified 03/16/24 12:05) RASH penicillin V Allergy (Unknown, Verified 03/16/24 12:05) throat swelling Latex Gloves Allergy (Unknown, Uncoded 05/22/22 01:38) throat swelling Medication List - Last Reconciled 03/16/24 by Edmund Loyd MD amlodipine 10 mg PO DAILY bisacodyl (Dulcolax (bisacodyl)) 10 mg (2 x 5 mg) PO BEDTIME hydralazine mg PO DAILY lisinopril 40 mg PO DAILY omeprazole 40 mg PO DAILY polyethylene glycol 3350 (Miralax) 238 grams PO ONCE spironolacton-hydrochlorothiaz 25-25 mg 1 tab PO DAILY HPI Comments Details: Saran is a pleasant middle-aged man with a history of hypertension. Recently he had accelerated hypertension and compliance has been an issue. He has been referred for evaluation of hypertension and microscopic hematuria. He has no gross hematuria. No pain during urination. No history of kidney stones. No leg edema. No shortness of breath. No nausea vomiting. No rash. No joint pain. All other systems were reviewed. He does not smoke. He drinks 3-6 cans of beer almost every day. Felting Machine Operator service was used. 02/01/2024. Overall doing well. He did not take his antihypertensive medication today. He is cut down beer intake to 2 cans per day. 07/13/2024. Complains of dizziness and dry mouth with clonidine He is tolerating Aldactazide well. [facility] Surgical History Hx of colonoscopy History of arthroplasty of right hip History of esophagogastroduodenoscopy (EGD) Physical Exam Vital Signs: Last Vital Signs Pulse 74 03/16/24 12:03 BP 110/78 03/16/24 12:03 Pulse Ox 96 03/16/24 12:03 Oxygen Delivery Method Room Air 03/16/24 12:03 BMI result Body Mass Index 28.3 Const General: comfortable; No acute distress Orientation/consciousness: patient oriented x3 Eyes General: appearance normal, both eyes and all related structures Visual Canela: normal visual canela by confrontation Neck Neck: Yes supple and Yes no JVD Resp Effort & Inspection: normal respiratory effort and respiratory effort not decreased Auscultation: rhonchi Cardio Palpation: no palpable S3 and no palpable S4 Heart sounds: no rubs GI Inspection: Yes normal to inspection Palpation (GI): Soft to palpation Percussion: Yes normal to percussion Auscultation: normal bowel sounds General: Yes no CVA tenderness Back/Spine/Pelvis Back: no CVA tenderness Skin General skin exam: no petechiae and no purpura Neuro General: patient oriented x3 and no focal motor deficits Extrem General: No clubbing and No edema Results Reviewed Nephrology Results: Hgb 16.3 g/dl (14.0-18.0) 01/28/24 WBC 5.2 X10*3/uL (4.8-10.8) 01/28/24 Plt Count 124 X10*3/uL (160-400) L 01/28/24 Sodium 140 mmol/L (135-145) 03/16/24 Potassium 4.0 mmol/L (3.3-5.1) 03/16/24 Chloride 105 mmol/L (96-108) 03/16/24 Carbon Dioxide 27 mmol/L (22-29) 03/16/24 BUN 12 mg/dL (9-16) 03/16/24 Creatinine 0.85 mg/dL (0.5-1.4) 03/16/24 Calcium 9.6 mg/dL (8.4-10.2) 03/16/24 Urine Protein Negative mg/dL (Neg-Trace) 01/28/24 Urine Creatinine 104.93 mg/dL 01/28/24 Renal US 01/07/24 Assessment & Plan Assessment & Plan (1) HTN (hypertension): Code(s): I10 - Essential (primary) hypertension Category: Medical (2) Hematuria: Code(s): R31.9 - Hematuria, unspecified Category: Medical Plan Saran is a 63-year-old man with a history of longstanding hypertension with microscopic hematuria. Urinalysis did not reveal any hematuria or proteinuria Urinalysis revealed glycosuria. Blood sugar was 156 millimoles Repeat Glucose was 126 with A1C of 5.2% Blood pressure is well controlled with Aldactazide Keep Aldactazide 25/25 one a day Discontinue clonidine due to side effects Encouraged him to stay on low-sodium diet He should cut back on alcohol intake. Discussed importance of compliance. Orders: Orders Basic Metabolic Panel 2 Months I10 - Essential (primary) hypertension Coding Level of Care Code Est Pt Level 3 (61663) Diagnoses HTN (hypertension) I10 Hematuria R31.9
== END 2024-03-16 12:15 | disposition home or self-care (01) ==
PROVIDERS: PCP Student in an Organized Health Care Education/Training Program; Visit Provider Internal Medicine Hypertension Specialist
DX: I10 Essential (primary) hypertension (principal); R31.9 Hematuria, unspecified
CPT/HCPCS: 99213

== ENCOUNTER 2024-08-07 08:47 | Outpatient (REF) | payer OTHER, SELFPAY ==
[2024-08-07 10:03] LABS: Anion Gap 12 (12-20); Blood Urea Nitrogen 12 mg/dL (9-16); Calcium 9.2 mg/dL (8.4-10.2); Carbon Dioxide 28 mmol/L (22-29); Chloride 103 mmol/L (96-108); Estimated Glomerular Filt Rate > 60; Glucose Random 147 mg/dL (60-115); Potassium 3.6 mmol/L (3.3-5.1); Sodium 139 mmol/L (135-145)
== END 2024-08-07 08:48 | disposition home or self-care (01) ==
LOC: HO.LAB 08:47
PROVIDERS: PCP Student in an Organized Health Care Education/Training Program; Visit Provider Internal Medicine Hypertension Specialist
DX: I10 Essential (primary) hypertension (principal); R31.9 Hematuria, unspecified
CPT/HCPCS: 36415; 80048; 99212

== ENCOUNTER 2024-08-07 11:30 | Outpatient (AMB) | payer OTHER, SELFPAY ==
--- NOTE | 2024-08-07 11:37 | HO.NEPHOV_ITS ---
Vital Signs 08/07/24 11:38 08/07/24 11:52 Height 5 ft 5 in Weight 175 lb BMI 29.1 BP 162/90 H 144/82 H Blood Pressure Location Lt brachial Rt brachial Position Sitting Sitting Pulse 85 Pulse Source Pulse Oximeter Pulse Oximetry (%) 95 Oxygen Delivery Method Room Air Intake Visit Reasons: Hyponatremia/ LVM Patient Information Coordinator Required: Yes Patient Information Coordinator Name: [id number] Dulce Maria Accompanied by: Self / Same As Patient Allergies Penicillins Allergy (Severe, Verified 08/07/24 11:41) SWELLING latex [LATEX] Allergy (Intermediate, Verified 08/07/24 11:41) RASH penicillin V Allergy (Unknown, Verified 08/07/24 11:41) throat swelling Latex Gloves Allergy (Unknown, Uncoded 05/22/22 01:38) throat swelling Medication List - Last Reconciled 08/07/24 by Edmund Loyd MD amlodipine 10 mg PO DAILY bisacodyl (Dulcolax (bisacodyl)) 10 mg (2 x 5 mg) PO BEDTIME hydralazine mg PO DAILY lisinopril 40 mg PO DAILY omeprazole 40 mg PO DAILY polyethylene glycol 3350 (Miralax) 238 grams PO ONCE spironolacton-hydrochlorothiaz 25-25 mg 1 tab PO DAILY HPI Comments Details: Saran is a pleasant middle-aged man with a history of hypertension. Recently he had accelerated hypertension and compliance has been an issue. He has been referred for evaluation of hypertension and microscopic hematuria. He has no gross hematuria. No pain during urination. No history of kidney stones. No leg edema. No shortness of breath. No nausea vomiting. No rash. No joint pain. All other systems were reviewed. He does not smoke. He drinks 3-6 cans of beer almost every day. Patient Information Coordinator service was used. 02/01/2024. Overall doing well. He did not take his antihypertensive medication today. He is cut down beer intake to 2 cans per day. 07/13/2024. Complains of dizziness and dry mouth with clonidine He is tolerating Aldactazide well. [facility] Surgical History Hx of colonoscopy History of arthroplasty of right hip History of esophagogastroduodenoscopy (EGD) Physical Exam Vital Signs: Last Vital Signs Pulse 85 12/02/24 11:38 BP 162/90 H 08/07/24 11:38 Pulse Ox 95 08/07/24 11:38 Oxygen Delivery Method Room Air 08/07/24 11:38 BMI result Body Mass Index 29.1 Comfortable Neck supple no JVD. Lungs entry equal no rales. Heart S1-S2 heard no gallop or rub. Abdomen soft nontender. Neuro alert awake oriented. No asterixis. Extremities no edema. Results Reviewed Nephrology Results: Hgb 16.3 g/dl (14.0-18.0) 01/28/24 WBC 5.2 X10*3/uL (4.8-10.8) 01/28/24 Plt Count 124 X10*3/uL (160-400) L 01/28/24 Sodium 139 mmol/L (135-145) 08/07/24 Potassium 3.6 mmol/L (3.3-5.1) 08/07/24 Chloride 103 mmol/L (96-108) 08/07/24 Carbon Dioxide 28 mmol/L (22-29) 08/07/24 BUN 12 mg/dL (9-16) 08/07/24 Creatinine 0.95 mg/dL (0.5-1.4) 08/07/24 Calcium 9.2 mg/dL (8.4-10.2) 08/07/24 Urine Protein Negative mg/dL (Neg-Trace) 01/28/24 Urine Creatinine 104.93 mg/dL 01/28/24 Renal US 01/07/24 Assessment & Plan Assessment & Plan (1) HTN (hypertension): Code(s): I10 - Essential (primary) hypertension Category: Medical (2) Hematuria: Code(s): R31.9 - Hematuria, unspecified Category: Medical Plan Saran is a 63-year-old man with a history of longstanding hypertension with microscopic hematuria. Urinalysis did not reveal any hematuria or proteinuria Urinalysis revealed glycosuria. Blood sugar was 156 millimoles Repeat Glucose was 126 with A1C of 5.2% Blood pressure is well controlled with Aldactazide Keep Aldactazide 25/25 one a day Discontinue clonidine due to side effects Initial reading was elevated Repeat was better No changes made today Encouraged him to stay on low-sodium diet He should cut back on alcohol intake. Discussed importance of compliance. Orders: Orders Complete Blood Count no Diff Today I10 - Essential (primary) hypertension Basic Metabolic Panel 3 Months I10 - Essential (primary) hypertension Coding Level of Care Code Est Pt Level 4 (96523) Diagnoses HTN (hypertension) I10 Hematuria R31.9
[2024-08-07 11:38] VITALS: BP 162/90; PULSE 85; O2SAT 95; BMI 29.1
[2024-08-07 11:52] VITALS: BP 144/82
== END 2024-08-07 11:54 | disposition home or self-care (01) ==
PROVIDERS: PCP Student in an Organized Health Care Education/Training Program; Visit Provider Internal Medicine Hypertension Specialist
DX: I10 Essential (primary) hypertension (principal); R31.9 Hematuria, unspecified
CPT/HCPCS: 99214

== ENCOUNTER 2024-11-03 08:45 | Outpatient (REF) | payer OTHER, SELFPAY ==
--- OUTSIDE RECORDS SUMMARY | 2024-11-03 09:01 | XMS_ITS | Clinical Summary ---
Author Organization [employer] Address [address] [facility] 7[address] [place] [address] Care Team Providers Care Online Community Manager Name Role Phone Jyoti Apple MD Primary Care Provider [phone] Allergies Active Allergy Reactions Criticality Noted Date Comments Penicillins 12/21/2023 Medications * This document contains information received from the source organization and may not represent a complete record from that organization. lisinopril 40 MG tablet Take 1 tablet (40 mg) by mouth in the morning. 90 tablet 3 12/21/2023 12/21/19 25 Active hydroCHLOROthiaz sanjiv (HYDRODiuril) 25 MG tablet Take 1 tablet (25 mg) by mouth in the morning. 90 tablet 3 12/21/2023 12/21/19 25 Active hydrALAZINE (Apresoline) 10 MG tablet Take 1 tablet (10 mg) by mouth in the morning. 90 tablet 3 12/21/2023 12/21/19 25 Active cloNIDine (Catapres) 0.1 MG tablet Take 1 tablet (0.1 mg) by mouth every 8 (eight) hours. 270 tablet 3 12/21/2023 12/21/19 25 Active amLODIPine (Norvasc) 10 MG tablet Take 1 tablet (10 mg) by mouth in the morning. 90 tablet 12/21/2023 12/21/19 25 Active omeprazole (PriLOSEC) [address] Austin ns:Gastroesophag eal reflux disease without esophagitis TAKE 1 CAPSULE BY MOUTH EVERY DAY BEFORE A MEAL 90 capsule 05/01/2024 Active Social History Tobacco Use Types Packs/Day Years Used Date Smoking Tobacco: Never Smokeless Tobacco: Never Tobacco Cessation:Counseling Given: Not Answered Housing Stability Answer Date Recorded What is your housing situation today? I have mukul rae 11/29/[address] you li ve. Do you have problems with any of the following? None of the above 11/29/2023 Food Insecurity Answer Date Recorded Within the past 12 months, y ou worried that your food would run out before you got money to buy more: Never True 11/29/2023 Within the past 12 months,th e food you bought just didn't last and you didn't have enough money to get more: Never True Transportation Answer Date Recorded In the past 12 months, has l ack of transportation kept you from medical appts, meetings, work or from getting things needed for daily living? No 11/29/2023 Utilities Answer Date Recorded In the past 12 months, has t he electric, gas, oil or water company threatened to shut off services in your home? No 11/29/2023 Sex and Gender Information Value Date Recorded Sex Assigned at Male 07/06/2022 10:20 AM EDT Legal Sex Male 10:20 AM EDT Gender Identity Male 07/06/2022 10:20 AM EDT Sexual Orientation Straight 07/06/2022 10 :20 AM EDT Last Filed Vital Signs Vital Sign Reading Time Taken Comments Blood Pressure 180/110 12/21/2023 11:09 AM EDT Pulse 72 12/21/2023 11:09 AM EDT Temperature 36.3 ??C (97.4 ??F) 12/21/2023 11:09 AM E DT Respiratory Rate 19 12/21/2023 11:09 AM EDT Oxygen Saturation - - Inhaled Oxygen Concentration - - Weight 78.5 kg (173 lb) 12/21/2023 11:09 AM EDT Height 165.1 cm (5' 5 ) 12/21/2023 11:09 AM EDT Body Mass Index 28.79 12/21/2023 11:09 AM EDT Plan of Treatment Health Maintenance Due Date Last Done Comments CT Colonography 1961 Depression Screening 1961 FIT DNA/Cologuard 1961 FIT 1961 FOBT 1961 HIV Screening 1961 Sigmoidoscopy 1961 Alcohol/Substance Use Screening 1973 Hepatitis C Screening 1979 DTaP/Tdap/Td Vaccines (1 - Tdap) 1980 Pneumococcal Vaccine: 50+ Years (1 of 1 - PCV) 2011 Zoster Vaccines (1 of 2) 2011 Colonoscopy 07/03/2021 07/03/2018 Colorectal Cancer Screening 07/03/2021 COVID-19 Vaccine (3 - 2023-2 5 season) 2024 05/06/2021, 04/14/2021 Influenza Vaccine (#1) 2024 SDOH Screening 11/28/2024 11/29/2023 Tobacco Screening 12/20/2024 12/21/2023 Lipid Panel 09/26/2026 09/26/2021 RSV Patients and Patients Aged 60 years or older (1 - 1-dose 75+ series) 2036 HIB Vaccines Aged Out No longer eligi ble based on patient's age to complete this topic HPV Vaccines Aged Out No longer eligi ble based on patient's age to complete this topic Hepatitis A Vaccines Aged Out No long er eligible based on patient's age to complete this topic Hepatitis B Vaccines Aged Out No long er eligible based on patient's age to complete this topic IPV Vaccines Aged Out No longer eligi ble based on patient's age to complete this topic Meningococcal Vaccine Aged Out No leighann rosa elena eligible based on patient's age to complete this topic Pneumococcal Vaccine: Pediatrics (0 to 5 Years) and At-Risk Patients (6 to 49) Years) Aged Out No longer eligible b ased on patient's age to complete this topic RSV under 20 months Aged Out No longe r eligible based on patient's age to complete this topic Rotavirus Vaccines Aged Out No longer eligible based on patient's age to complete this topic Procedures Procedure Name Priority Date/Time Associated Diagnosis Comments BASIC METABOLIC PANEL Routine 08/07/2024 9:02 AM EST LIPID PANEL, STANDARD Routine 09/26/2021 10:26 AM EST HM COLONOSCOPY Routine 07/03/2018 from Last 3 Months or Most Recently Relevant to Health Maintenance Results * (ABNORMAL) Basic Metabolic Panel (08/07/2024 9:02 AM EST) Sodium 139 135 - 145 mmol/L [facility] Potassium 3.6 3.3 - 5.1 mmol/L [facility] Chloride 103 96 - 108 mmol/L [facility] Carbon Dioxide 28 22 - 29 mmol/L [facility] Anion Gap 12 12 - 20 [facility] Urea Nitrogen (BUN) 12 9 - 16 mg/dL [facility] Creatinine, Serum 0.95 0.5 - 1.4 mg/dL [facility] Estimated Glomerular Filt Rate >60 [facility] Comment:Chronic Kidney Disea se: Estimated GFR < 60 mL/min/1.92c5Qealyt Kidney Disease: Estimated GFR < 15 mL/min/1.73m2 Glucose 147(H) 60 - 115 mg/dL [facility] Calcium 9.2 8.4 - 10.2 mg/dL [facility] 08/07/2024 9:02 AM EST 08/07/2024 9:02 AM EST us Generic External Data Provider LAB BLOOD ORDERAB LES Final Result Performing Organization Address City/State/[facility] Co de Phone Number [facility] [address] [place] [phone] * (ABNORMAL) LIPID PANEL, STANDARD (09/26/2021 10:26 AM EST) Chol/HDLC Ratio 2.8 <5.0 (calc) [facility] Cholesterol, Total 205(H) <200 mg/dL [facility] HDL Cholesterol 72 > OR = 40 mg/dL [facility] LDL Cholesterol 117(H) mg/dL (calc) [facility] Comment: Reference range: <100 ?? Desirable range <100 mg/dL for primary prevention; ?? <70 mg/dL for patients with CHD or diabetic patients ?? with > or = 2 CHD risk factors. ?? LDL-C is now calculated using the James ?? calculation, which is a validated novel method providing ?? better accuracy than the Friedewald equation in the ?? estimation of LDL-C. ?? Subhash QUINTANA et al. GAVIOTA. 2013;310(19): 2083-7429 ?? (http://education.DiscGenics.Easycause/faq/GZG409) Non-HDL Cholesterol 133(H) <130 mg/dL (calc) [facility] Comment: For patients with diabetes plus 1 major ASCVD risk ?? factor, treating to a non-HDL-C goal of <100 mg/dL ?? (LDL-C of <70 mg/dL) is considered a therapeutic ?? option. Triglycerides 69 <150 mg/dL [facility] 09/26/2021 10:2 6 AM EST Jyoti Apple MD LAB BLOOD ORDERABLES Final Resul t [facility] [address] * Colonoscopy (07/03/2018) Colonoscopy Normal Normal Historical Provider HEALTH MAINTENANCE Final Result from Last 3 Months or Most Recently Relevant to Health Maintenance Insurance [facility] Care Teams Online Community Manager Relationship Specialty Start Date End Date Jyoti Apple MD [address] [place] [phone] PCP - General Family Medicine 08/22/12
[2024-11-03 10:17] LABS: Hemoglobin 16.1 g/dl (14.0-18.0); Mean Corpuscular HGB Conc 35.8 g/dl (31.0-36.0); Mean Corpuscular Hemoglobin 31.5 pg (27.0-33.0); Mean Corpuscular Volume 88.1 fL (80.0-98.0); Platelet Count 151 X10*3/uL (160-400); Red Blood Count 5.11 X10*6/uL (4.60-5.80); Red Cell Distribution Width 10.5 % (11.0-16.0); White Blood Count 5.3 X10*3/uL (4.8-10.8)
[2024-11-03 10:58] LABS: Anion Gap 11 (12-20); Blood Urea Nitrogen 12 mg/dL (9-16); Calcium 9.6 mg/dL (8.4-10.2); Carbon Dioxide 26 mmol/L (22-29); Chloride 105 mmol/L (96-108); Estimated Glomerular Filt Rate > 60; Glucose Random 136 mg/dL (60-115); Potassium 4.6 mmol/L (3.3-5.1); Sodium 137 mmol/L (135-145)
== END 2024-11-03 08:46 | disposition home or self-care (01) ==
LOC: HO.LAB 08:45
PROVIDERS: PCP Student in an Organized Health Care Education/Training Program; Visit Provider Internal Medicine Hypertension Specialist
DX: I10 Essential (primary) hypertension (principal)
CPT/HCPCS: 36415; 80048; 85027

== ENCOUNTER 2024-11-07 09:28 | Outpatient (AMB) | payer OTHER, SELFPAY ==
--- NOTE | 2024-11-07 09:29 | HO.NEPHOV ---
Vital Signs 11/07/24 09:30 11/07/24 09:41 Height 5 ft 5 in Weight 175 lb BMI 29.1 BP 162/82 H 142/80 H Blood Pressure Location Lt brachial Lt brachial Position Sitting Sitting Pulse 97 Pulse Source Pulse Oximeter Pulse Oximetry (%) 98 Oxygen Delivery Method Room Air Intake Visit Reasons: Hyponatremia/ Conf Business Machine Mechanic Required: Yes Business Machine Mechanic Name: [id number] Curtis Accompanied by: Self / Same As Patient Allergies Penicillins Allergy (Severe, Verified 11/07/24 09:32) SWELLING latex [LATEX] Allergy (Intermediate, Verified 11/07/24 09:32) RASH penicillin V Allergy (Unknown, Verified 11/07/24 09:32) throat swelling Latex Gloves Allergy (Unknown, Uncoded 05/22/22 01:38) throat swelling Medication List - Last Reconciled 11/07/24 by Edmund Loyd MD amlodipine 10 mg PO DAILY bisacodyl (Dulcolax (bisacodyl)) 10 mg (2 x 5 mg) PO BEDTIME hydralazine mg PO DAILY lisinopril 40 mg PO DAILY omeprazole 40 mg PO DAILY polyethylene glycol 3350 (Miralax) 238 grams PO ONCE spironolacton-hydrochlorothiaz 25-25 mg 1 tab PO DAILY HPI Comments Details: Saran is a pleasant middle-aged man with a history of hypertension. Recently he had accelerated hypertension and compliance has been an issue. He has been referred for evaluation of hypertension and microscopic hematuria. He has no gross hematuria. No pain during urination. No history of kidney stones. No leg edema. No shortness of breath. No nausea vomiting. No rash. No joint pain. All other systems were reviewed. He does not smoke. He drinks 3-6 cans of beer almost every day. Business Machine Mechanic service was used. 02/01/2024. Overall doing well. He did not take his antihypertensive medication today. He is cut down beer intake to 2 cans per day. 07/13/2024. Complains of dizziness and dry mouth with clonidine; He is tolerating Aldactazide well. 11/07/24 No futher dry mouth or dizziness Takes hydralazine 10 mg QD [facility] Hx of colonoscopy History of arthroplasty of right hip History of esophagogastroduodenoscopy (EGD) Physical Exam Vital Signs: Last Vital Signs Pulse 97 11/07/24 09:30 BP 162/82 H 11/07/24 09:30 Pulse Ox 98 11/07/24 09:30 Oxygen Delivery Method Room Air 11/07/24 09:30 BMI result Body Mass Index 29.1 Comfortable Neck supple no JVD. Lungs entry equal no rales. Heart S1-S2 heard no gallop or rub. Abdomen soft nontender. Neuro alert awake oriented. No asterixis. Extremities no edema. Results Reviewed Nephrology Results: Hgb 16.1 g/dl (14.0-18.0) 11/03/24 WBC 5.3 X10*3/uL (4.8-10.8) 11/03/24 Plt Count 151 X10*3/uL (160-400) L 11/03/24 Sodium 137 mmol/L (135-145) 11/03/24 Potassium 4.6 mmol/L (3.3-5.1) 11/03/24 Chloride 105 mmol/L (96-108) 11/03/24 Carbon Dioxide 26 mmol/L (22-29) 11/03/24 BUN 12 mg/dL (9-16) 11/03/24 Creatinine 0.75 mg/dL (0.5-1.4) 11/03/24 Calcium 9.6 mg/dL (8.4-10.2) 11/03/24 Assessment & Plan Assessment & Plan (1) HTN (hypertension): Code(s): I10 - Essential (primary) hypertension Category: Medical (2) Hematuria: Code(s): R31.9 - Hematuria, unspecified Category: Medical Plan Saran is a 64-year-old man with a history of longstanding hypertension with microscopic hematuria. Urinalysis did not reveal any hematuria or proteinuria Urinalysis revealed glycosuria. Blood sugar was 156 millimoles Repeat Glucose was 126 with A1C of 5.2% Initial reading was elevated Repeat was better but still sub optimal INCREASE Hydralazine to 25 mg BID Encouraged him to stay on low-sodium diet He should cut back on alcohol intake. Discussed importance of compliance. Medications: Changed From hydralazine PO DAILY To hydralazine 25 mg PO BID 60 tabs 2RF Coding Level of Care Code Est Pt Level 4 (98427) Diagnoses HTN (hypertension) I10 Hematuria R31.9
[2024-11-07 09:30] VITALS: BP 162/82; PULSE 97; O2SAT 98; BMI 29.1
[2024-11-07 09:41] VITALS: BP 142/80
--- OUTSIDE RECORDS SUMMARY | 2024-11-07 10:34 | XMS_ITS | Clinical Summary ---
Author Organization [employer] Address [address] [facility] [address] [place] [address] Care Team Providers Care Government Affairs Fellow Name Role Phone Jyoti Apple MD Primary Care Provider [phone] Allergies Active Allergy Reactions Criticality Noted Date [...] Associated Diagnosis Comments BASIC METABOLIC PANEL Routine 11/03/2024 9:06 AM EST CBC Routine 11/03/2024 9:06 AM EST LIPID PANEL, STANDARD Routine 09/26/2021 10:26 AM EST HM COLONOSCOPY Routine 07/03/2018 from Last 3 Months or Most Recently Relevant to Health Maintenance Results * (ABNORMAL) CBC (11/03/2024 9:06 AM EST) White Blood Count 5.3 4.8 - 10.8 X10*3/uL [facility] Red Blood Count 5.11 4.60 - 5.80 X10*6/uL [facility] Hemoglobin 16.1 14.0 - 18.0 g/dl [facility] Hematocrit 45.0 42.0 - 52.0 % [facility] Mean Corpuscular Volume 88.1 80.0 - 98.0 fL [facility] Mean Corpuscular Hemoglobin 31.5 27.0 - 33.0 pg [facility] Mean Corpuscular HGB Conc 35.8 31.0 - 36.0 g/dl [facility] Red Cell Distribution Width 10.5(L) 11.0 - 16.0 % [facility] Platelet Count 151(L) 160 - 400 X10*3/uL [facility] Mean Platelet Volume 12.0 9.4 - 12.4 fL [facility] NRBC Pct Auto 0.0 0.0 - 0.2 /100WBC [facility] NRBC Abs Auto 0.000 0.0 - 0.012 X10*3/uL [facility] 11/03/2024 9:06 AM EST 11/03/2024 9:06 AM EST us Generic External Data Provider LAB BLOOD ORDERAB LES Final Result Performing Organization Address City/State/[facility] Co de Phone Number [facility] [address] [place] [address] [phone] * (ABNORMAL) Basic Metabolic Panel (11/03/2024 9:06 AM EST) [facility] Sodium 137 135 - 145 mmol/L [facility] Potassium 4.6 3.3 - 5.1 mmol/L [facility] Chloride 105 96 - 108 mmol/L [facility] Carbon Dioxide 26 22 - 29 mmol/L [facility] Anion Gap 11(L) 12 - 20 [facility] Urea Nitrogen (BUN) 12 9 - 16 mg/dL [facility] Creatinine, Serum 0.75 0.5 - 1.4 mg/dL [facility] Estimated Glomerular Filt Rate >60 [facility] Comment:Chronic Kidney Disea se: Estimated GFR < 60 mL/min/1.28u6Vwvthm Kidney Disease: Estimated GFR < 15 mL/min/1.73m2 Glucose 136(H) 60 - 115 mg/dL [facility] Calcium 9.6 8.4 - 10.2 mg/dL [facility] 11/03/2024 9:06 AM EST 11/03/2024 9:06 AM EST us Generic External Data Provider LAB BLOOD ORDERAB LES Final Result [facility] [address] [place] [phone] * (ABNORMAL) LIPID PANEL, STANDARD (09/26/2021 [...] ?? Subhash QUINTANA et al. GAVIOTA. 2013;310(19): 5857-1066 ?? (http://education.ThetaRay/faq/TGY069) Non-HDL Cholesterol 133(H) <130 mg/dL (calc) [facility] Comment: For patients with diabetes plus 1 major ASCVD risk ?? factor, treating to a non-HDL-C goal of <100 mg/dL ?? (LDL-C of <70 mg/dL) is considered a therapeutic ?? option. Triglycerides 69 <150 mg/dL [facility] 09/26/2021 10:2 6 AM EST Jyoti Apple MD LAB BLOOD ORDERABLES Final Resul t [facility] [address] [place] [address], * Colonoscopy (07/03/2018) Colonoscopy Normal Normal Historical Provider HEALTH MAINTENANCE Final Result from Last 3 Months or Most Recently Relevant to Health Maintenance Insurance [facility] Care Teams Government Affairs Fellow Relationship Specialty Start Date End Date Jyoti Apple MD [address] [place] [address] [place] [id number] PCP - General Family Medicine 08/22/12
== END 2024-11-07 09:44 | disposition home or self-care (01) ==
PROVIDERS: PCP Student in an Organized Health Care Education/Training Program; Visit Provider Internal Medicine Hypertension Specialist
DX: I10 Essential (primary) hypertension (principal); R31.9 Hematuria, unspecified
CPT/HCPCS: 99214

== ENCOUNTER → 2024-11-07 09:28 | Outpatient (BNVA) | payer OTHER, SELFPAY | PROVIDERS: PCP Student in an Organized Health Care Education/Training Program; Visit Provider Internal Medicine Hypertension Specialist | DX: I10 Essential (primary) hypertension (principal); R31.9 Hematuria, unspecified | CPT/HCPCS: 99212 ==

== ENCOUNTER 2025-01-09 10:52 | Outpatient (AMB) | payer OTHER, SELFPAY ==
--- NOTE | 2025-01-09 11:01 | HO.NEPHOV_ITS ---
Vital Signs 01/09/25 11:02 01/09/25 11:17 Height 5 ft 5 in Weight 177 lb BMI 29.5 BP 158/84 H 142/80 H Blood Pressure Location Rt brachial Rt brachial Position Sitting Sitting Pulse 83 Pulse Source Pulse Oximeter Pulse Oximetry (%) 97 Oxygen Delivery Method Room Air Intake Visit Reasons: 2 MO FU/ Conf Social Organization Professor Required: Yes Social Organization Professor Name: Nelia [id number] Accompanied by: Self / Same As Patient Allergies Penicillins Allergy (Severe, Verified 01/09/25 11:06) SWELLING latex [LATEX] Allergy (Intermediate, Verified 01/09/25 11:06) RASH penicillin V Allergy (Unknown, Verified 01/09/25 11:06) throat swelling Latex Gloves Allergy (Unknown, Uncoded 05/22/22 01:38) throat swelling Medication List - Last Reconciled 01/09/25 by Edmund Loyd MD amlodipine 10 mg PO DAILY bisacodyl (Dulcolax (bisacodyl)) 10 mg (2 x 5 mg) PO BEDTIME hydralazine 25 mg PO BID lisinopril 40 mg PO DAILY omeprazole 40 mg PO DAILY polyethylene glycol 3350 (Miralax) 238 grams PO ONCE spironolacton-hydrochlorothiaz 25-25 mg 1 tab PO DAILY HPI Comments Details: Saran is a pleasant middle-aged man with a history of hypertension. Recently he had accelerated hypertension and compliance has been an issue. He has been referred for evaluation of hypertension and microscopic hematuria. He has no gross hematuria. No pain during urination. No history of kidney stones. No leg edema. No shortness of breath. No nausea vomiting. No rash. No joint pain. All other systems were reviewed. He does not smoke. He drinks 3-6 cans of beer almost every day. Social Organization Professor service was used. 02/01/2024. Overall doing well. He did not take his antihypertensive medication today. He is cut down beer intake to 2 cans per day. 07/13/2024. Complains of dizziness and dry mouth with clonidine; He is tolerating Aldactazide well. 11/07/24 ;No futher dry mouth or dizziness;Takes hydralazine 10 mg QD withother meds 01/09/25 Has been taking Hydralazine only once a day No new issued today PFSH Surgical History Hx of colonoscopy History of arthroplasty of right hip History of esophagogastroduodenoscopy (EGD) Physical Exam Vital Signs: Last Vital Signs Pulse 83 01/09/25 11:02 BP 158/84 H 01/09/25 11:02 Pulse Ox 97 01/09/25 11:02 Oxygen Delivery Method Room Air 01/09/25 11:02 BMI result Body Mass Index 29.5 Comfortable Neck supple no JVD. Lungs entry equal no rales. Heart S1-S2 heard no gallop or rub. Abdomen soft nontender. Neuro alert awake oriented. No asterixis. Extremities no edema. Results Reviewed Nephrology Results: 2 Hgb 16.1 g/dl (14.0-18.0) 11/03/24 WBC 5.3 X10*3/uL (4.8-10.8) 11/03/24 Plt Count 151 X10*3/uL (160-400) L 11/03/24 Sodium 137 mmol/L (135-145) 11/03/24 Potassium 4.6 mmol/L (3.3-5.1) 11/03/24 Chloride 105 mmol/L (96-108) 11/03/24 Carbon Dioxide 26 mmol/L (22-29) 11/03/24 BUN 12 mg/dL (9-16) 11/03/24 Creatinine 0.75 mg/dL (0.5-1.4) 11/03/24 Calcium 9.6 mg/dL (8.4-10.2) 11/03/24 Assessment & Plan Assessment & Plan (1) HTN (hypertension): Code(s): I10 - Essential (primary) hypertension Category: Medical (2) Hematuria: Code(s): R31.9 - Hematuria, unspecified Category: Medical Plan Saran is a 64-year-old man with a history of longstanding hypertension with microscopic hematuria. Urinalysis did not reveal any hematuria or proteinuria Urinalysis revealed glycosuria. Blood sugar was 156 millimoles Repeat Glucose was 126 with A1C of 5.2% Initial reading was elevated Repeat was better but still sub optimal INCREASE Hydralazine to 25 mg BID ( explained with the help of interpretor) Encouraged him to stay on low-sodium diet He should cut back on alcohol intake. Discussed importance of compliance. Coding Level of Care Code Est Pt Level 4 (00916) Diagnoses HTN (hypertension) I10 Hematuria R31.9
[2025-01-09 11:02] VITALS: BP 158/84; PULSE 83; O2SAT 97; BMI 29.5
[2025-01-09 11:17] VITALS: BP 142/80
--- OUTSIDE RECORDS SUMMARY | 2025-01-09 12:35 | XMS_ITS | Clinical Summary ---
Author Organization [employer] Address [address] [place] [address] Care Team Providers Care Dough Molder Hand Name Role Phone Jyoti Apple MD Primary Care Provider [phone] Allergies Active Allergy Reactions Criticality Noted Date [...] Type Department Care Team Description 11/24/2024 Refill [facility] [address] [place] [address] Jyoti Apple MD Gastroesophageal reflux disease without [...] (ABNORMAL) CBC (11/03/2024 9:06 AM EST) Pathologist [facility] White Blood Count 5.3 4.8 - 10.8 X10*3/uL [facility] Red Blood Count 5.11 4.60 - 5.80 X10*6/uL [facility] Hemoglobin 16.1 14.0 - 18.0 g/dl [facility] Hematocrit 45.0 42.0 - 52.0 % [facility] Mean Corpuscular Volume 88.1 80.0 - 98.0 fL [facility] Mean Corpuscular Hemoglobin 31.5 27.0 - 33.0 pg [facility] Mean Corpuscular HGB Conc 35.8 31.0 - 36.0 g/dl [facility] Red Cell Distribution Width 10.5(L) 11.0 - 16.0 % [facility] Platelet Count 151(L) 160 - 400 X10*3/uL [facility] Mean Platelet Volume 12.0 9.4 - 12.4 fL [facility] NRBC Pct Auto 0.0 0.0 - 0.2 /100WBC [facility] NRBC Abs Auto 0.000 0.0 - 0.012 X10*3/uL [facility] 11/03/2024 9:06 AM EST 11/03/2024 9:06 AM EST us Generic External Data Provider LAB BLOOD ORDERAB LES Final Result [facility] [address] [place] [phone] * (ABNORMAL) Basic Metabolic Panel (11/03/2024 9:06 AM EST) [facility] Sodium 137 135 - 145 mmol/L [facility] Potassium 4.6 3.3 - 5.1 mmol/L [facility] Chloride 105 96 - 108 mmol/L [facility] Carbon Dioxide 26 22 - 29 mmol/L [facility] Anion Gap 11(L) 12 - 20 [facility] Urea Nitrogen (BUN) 12 9 - 16 mg/dL [facility] Creatinine, Serum 0.75 0.5 - 1.4 mg/dL [facility] Estimated Glomerular Filt Rate >60 [facility] Comment:Chronic Kidney Disea se: Estimated GFR < 60 mL/min/1.81f1Hhelxd Kidney Disease: Estimated GFR < 15 mL/min/1.73m2 Glucose 136(H) 60 - 115 mg/dL [facility] Calcium 9.6 8.4 - 10.2 mg/dL [facility] 11/03/2024 9:06 AM EST 11/03/2024 9:06 AM EST us Generic External Data Provider LAB BLOOD ORDERAB LES Final Result [facility] [address] [place] [phone] * (ABNORMAL) LIPID PANEL, STANDARD (09/26/2021 [...] ?? Subhash QUINTANA et al. GAVIOTA. 2013;310(19): 6677-7709 ?? (http://education.Dynamic Yield/faq/XIW726) Non-HDL Cholesterol 133(H) <130 mg/dL (calc) [facility] Comment: For patients with diabetes plus 1 major ASCVD risk ?? factor, treating to a non-HDL-C goal of <100 mg/dL ?? (LDL-C of <70 mg/dL) is considered a therapeutic ?? option. Triglycerides 69 <150 mg/dL [facility] 09/26/2021 10:2 6 AM EST Jyoti Apple MD LAB BLOOD ORDERABLES Final Resul t [facility] [address] * Colonoscopy (07/03/2018) Colonoscopy Normal Normal Historical Provider HEALTH MAINTENANCE Final Result from Last 3 Months or Most Recently Relevant to Health Maintenance Insurance [facility] < [address] [place] [id number] [place] [id number] Care Teams Dough Molder Hand Relationship Specialty Start Date End Date Jyoti Apple MD [address] [place] [address] PCP - General Family Medicine 08/22/12
== END 2025-01-09 11:23 | disposition home or self-care (01) ==
LOC: HO.HKA 10:53
PROVIDERS: PCP Student in an Organized Health Care Education/Training Program; Visit Provider Internal Medicine Hypertension Specialist
DX: I10 Essential (primary) hypertension (principal); R31.9 Hematuria, unspecified
CPT/HCPCS: 99214

== ENCOUNTER → 2025-01-09 10:52 | Outpatient (BNVA) | payer OTHER, SELFPAY | PROVIDERS: PCP Student in an Organized Health Care Education/Training Program; Visit Provider Internal Medicine Hypertension Specialist | DX: I10 Essential (primary) hypertension (principal); R31.9 Hematuria, unspecified | CPT/HCPCS: 99212 ==

== ENCOUNTER 2025-03-06 11:48 | Outpatient (AMB) | payer OTHER, SELFPAY ==
--- NOTE | 2025-03-06 11:49 | HO.NEPHOV_ITS ---
Vital Signs 03/06/25 11:50 03/06/25 11:58 Height 5 ft 5 in Weight 177 lb BMI 29.5 BP 146/96 H 140/90 H Blood Pressure Location Rt brachial Rt brachial Position Sitting Sitting Pulse 93 Pulse Source Pulse Oximeter Pulse Oximetry (%) 98 Oxygen Delivery Method Room Air Intake Visit Reasons: 2 MO FU/ conf Urban Anthropologist Required: Yes Urban Anthropologist Name: Jeff [id number] Accompanied by: Self / Same As Patient Allergies Penicillins Allergy (Severe, Verified 03/06/25 11:51) SWELLING latex (LATEX) Allergy (Intermediate, Verified 03/06/25 11:51) RASH Medication List - Last Reconciled 03/06/25 by Edmund Loyd MD amlodipine 10 mg PO DAILY bisacodyl (Dulcolax (bisacodyl)) 10 mg (2 x 5 mg) PO BEDTIME hydralazine 25 mg PO BID lisinopril 40 mg PO DAILY omeprazole 40 mg PO DAILY polyethylene glycol 3350 (Miralax) 238 grams PO ONCE spironolacton-hydrochlorothiaz 25-25 mg 1 tab PO DAILY HPI Comments Details: Saran is a pleasant middle-aged man with a history of hypertension. Recently he had accelerated hypertension and compliance has been an issue. He has been referred for evaluation of hypertension and microscopic hematuria. He has no gross hematuria. No pain during urination. No history of kidney stones. No leg edema. No shortness of breath. No nausea vomiting. No rash. No joint pain. All other systems were reviewed. He does not smoke. He drinks 3-6 cans of beer almost every day. Urban Anthropologist service was used. 02/01/2024. Overall doing well. He did not take his antihypertensive medication today. He is cut down beer intake to 2 cans per day. 07/13/2024. Complains of dizziness and dry mouth with clonidine; He is tolerating Aldactazide well. 11/07/24 ;No futher dry mouth or dizziness;Takes hydralazine 10 mg QD withother meds 01/09/25 Has been taking Hydralazine only once a day No new issued today 03/06/25 The patient is a 64-year-old male presenting for management of hypertension. The patient reports taking medications including amlodipine, hydralazine, lisinopril, and spironolactone, with no changes in his regimen recently. He denies experiencing any side effects such as lightheadedness or dizziness upon standing. The patient consumes one to two alcoholic drinks per day and has been advised to limit salt intake and maintain adequate hydration. [facility] Medical History (Updated 01/12/25 @ 13:53 by Marcelle Cuevas RN) Barretts esophagus GERD (gastroesophageal reflux disease) HTN (hypertension) Surgical History Hx of colonoscopy History of arthroplasty of right hip History of esophagogastroduodenoscopy (EGD) Physical Exam Vital Signs: Last Vital Signs Pulse 93 03/06/25 11:50 BP 140/90 H 03/06/25 11:58 Pulse Ox 98 03/06/25 11:50 Oxygen Delivery Method Room Air 03/06/25 11:50 BMI result Body Mass Index 29.5 Comfortable Neck supple no JVD. Lungs entry equal no rales. Heart S1-S2 heard no gallop or rub. Abdomen soft nontender. Neuro alert awake oriented. No asterixis. Extremities no edema. Results Reviewed Nephrology Results: Hgb, (14.0-18.0) 16.1 g/dl 11/03/24 WBC, (4.8-10.8) 5.3 X10*3/uL 11/03/24 Plt Count, (160-400) 151 X10*3/uL L 11/03/24 Sodium, (135-145) 137 mmol/L 11/03/24 Potassium, (3.3-5.1) 4.6 mmol/L Δ 11/03/24 Chloride, (96-108) 105 mmol/L 11/03/24 Carbon Dioxide, (22-29) 26 mmol/L 11/03/24 BUN, (9-16) 12 mg/dL 11/03/24 Creatinine, (0.5-1.4) 0.75 mg/dL 11/03/24 Calcium, (8.4-10.2) 9.6 mg/dL 11/03/24 Renal US 01/07/24 Assessment & Plan Assessment & Plan (1) HTN (hypertension): Code(s): I10 - Essential (primary) hypertension Category: Medical (2) Hematuria: Code(s): R31.9 - Hematuria, unspecified Category: Medical Plan Saran is a 64-year-old man with a history of longstanding hypertension with microscopic hematuria. Urinalysis did not reveal any hematuria or proteinuria Urinalysis revealed glycosuria. Blood sugar was 156 millimoles Repeat Glucose was 126 with A1C of 5.2% Initial reading was elevated Repeat was better No chnages today Encouraged him to stay on low-sodium diet He should cut back on alcohol intake. Discussed importance of compliance. Medications: New amlodipine 10 mg PO DAILY 90 tabs 1RF lisinopril 40 mg PO DAILY 90 tabs 1RF Refilled hydralazine 25 mg PO BID 180 tabs 2RF spironolacton-hydrochlorothiaz 25-25 mg 1 tab PO DAILY 90 tabs 1RF Coding Level of Care Code Est Pt Level 4 (27850) Diagnoses HTN (hypertension) I10 Hematuria R31.9
[2025-03-06 11:50] VITALS: BP 146/96; PULSE 93; O2SAT 98; BMI 29.5
[2025-03-06 11:58] VITALS: BP 140/90
--- OUTSIDE RECORDS SUMMARY | 2025-03-06 12:59 | XMS_ITS | Clinical Summary ---
Author Organization [employer] Address [address] [place] [address] Care Team Providers Care Corporate Bond Trader Name Role Phone Jyoti Apple MD Primary Care Provider [phone] Allergies Active Allergy Reactions Criticality Noted Date Comments Penicillins 12/21/2023 Medications * This document contains information received from the source organization and may not represent a complete record from that organization. lisinopril 40 MG tablet Take 1 tablet (40 mg) by mouth in the morning. 90 tablet 3 4 Active hydroCHLOROthia zide (HYDRODiuril) 25 MG tablet Take 1 tablet (25 mg) by mouth in the morning. 90 tablet 3 4 Active hydrALAZINE (Apresoline) 10 MG tablet Take 1 tablet (10 mg) by mouth in the morning. 90 tablet 3 4 Active cloNIDine (Catapres) 0.1 MG tablet Take 1 tablet (0.1 mg) by mouth every 8 (eight) hours. 270 tablet 3 4 Active amLODIPine (Norvasc) 10 MG tablet Take 1 tablet (10 mg) by mouth in the morning. 90 tablet 3 4 Active omeprazole (PriLOSEC) [address] capsuleIndicati ons:Gastroesoph ageal reflux disease without esophagitis TAKE 1 CAPSULE BY MOUTH EVERY DAY BEFORE A MEAL 90 capsule 5 Active omeprazole (PriLOSEC) [address] capsuleIndicati ons:Gastroesoph ageal reflux disease without esophagitis TAKE 1 CAPSULE BY MOUTH EVERY DAY BEFORE A MEAL 90 capsule 5 025 Discontinued Encounters Date Type Department Care Team Description 02/23/2025 Orders Only [facility] [address] [facility] [place] [address] Purnima Vlaencia MD Encounter for screening for malignant neoplasm of colon (Primary Dx) 02/23/2025 Telephone [facility] PEDS [address] [place] [address] Jyoti Apple MD Referral 02/23/2025 Refill [facility] [address] [facility] [place] [address] Jyoti Apple MD Gastroesophageal reflux disease without esophagitis from Last 3 Months Social History Tobacco Use Types Packs/Day Years Used Date Smoking Tobacco: Never Smokeless Tobacco: Never Tobacco Cessation:Counseling Given: Not Answered Housing Stability Answer Date Recorded What is your housing situation today? I have mukulelodia rae 11/29/[address] you [...] 72 12/21/2023 11:09 AM EDT Temperature 36.3 C (97.4 F) 12/21/2023 11:09 AM EDT Respiratory Rate 19 12/21/2023 11:09 AM EDT Oxygen Saturation - - Inhaled Oxygen Concentration - - Weight 78.5 kg (173 lb) 12/21/2023 11:09 AM EDT Height 165.1 cm (5' 5 ) 12/21/2023 11:09 AM EDT Body Mass Index 28.79 12/21/2023 11:09 AM EDT Plan of Treatment Upcoming Encounters Date Type Department Care Team ([facility] st Contact Info) Description 05/11/2025 10:45 AM EDT Office Visit [facility] [address] [place] [address] Jyoti Apple MD [address] [place] [address] Health Maintenance Due Date Last Done Comments CT Colonography 1961 Depression Screening 1961 FIT DNA/Cologuard 1961 FIT 1961 FOBT 1961 HIV Screening 1961 Sigmoidoscopy 1961 Disability Screening 1961 Alcohol/Substance Use Screening 1973 Hepatitis C Screening 1979 DTaP/Tdap/Td Vaccines (1 - Tdap) 1980 Pneumococcal Vaccine: 50+ Years (1 of 1 - PCV) 2011 Zoster Vaccines (1 of 2) 2011 Colonoscopy 07/03/2021 07/03/2018 Colorectal Cancer Screening 07/03/2021 COVID-19 Vaccine (3 - 2023-2 5 season) 2024 05/06/2021, 04/14/2021 SDOH Screening 11/28/2024 11/29/2023 Tobacco Screening 12/20/2024 12/21/2023 Influenza Vaccine (Season Ended) 2025 Lipid Panel 09/26/2026 09/26/2021 RSV Patients and [...] patient's age to complete this topic Meningococcal B Vaccine Aged Out No l onger eligible based on patient's age to complete [...] Procedure Name Priority Date/Time Associated Diagnosis Comments LIPID PANEL, STANDARD Routine 09/26/2021 10:26 AM EST [facility] COLONOSCOPY Routine 07/03/2018 from Last 3 Months or Most Recently Relevant to Health Maintenance Results * (ABNORMAL) LIPID PANEL, STANDARD (09/26/2021 10:26 AM EST) Chol/HDLC Ratio 2.8 <5.0 (calc) [facility] Cholesterol, Total 205(H) <200 mg/dL [facility] HDL Cholesterol 72 > OR = 40 mg/dL [facility] LDL Cholesterol 117(H) mg/dL (calc) [facility] Comment: Reference range: <100 Desirable range <100 mg/dL for primary prevention; <70 mg/dL for patients with CHD or diabetic patients with > or = 2 CHD risk factors. LDL-C is now calculated using the Subhash-Nirmal calculation, which is a validated novel method providing better accuracy than the Friedewald equation in the estimation of LDL-C. Subhash QUINTANA et al. GAVIOTA. 2013;310(19): 1961-6140 (http://education.ZetrOZ.PubliAtis/faq/YDR007) Non-HDL Cholesterol 133(H) <130 mg/dL (calc) [facility] Comment: For patients with diabetes plus 1 major ASCVD risk factor, treating to a non-HDL-C goal of <100 mg/dL (LDL-C of <70 mg/dL) is considered a therapeutic option. Triglycerides 69 <150 mg/dL [facility] 09/26/2021 10:2 6 AM EST Jyoti Apple MD LAB BLOOD ORDERABLES Final Resul t [facility] [address] * Colonoscopy (07/03/2018) Colonoscopy Normal Normal Historical Provider HEALTH MAINTENANCE Final Result from Last 3 Months or Most Recently Relevant to [place] [id number] Care Teams Corporate Bond Trader Relationship Specialty Start Date End Date Jyoti Apple MD [address] [place] [phone] PCP - General Family Medicine 08/22/12
== END 2025-03-06 12:02 | disposition home or self-care (01) ==
LOC: HO.HKA 11:48
PROVIDERS: PCP Student in an Organized Health Care Education/Training Program; Visit Provider Internal Medicine Hypertension Specialist
DX: I10 Essential (primary) hypertension (principal); R31.9 Hematuria, unspecified
CPT/HCPCS: 99214

== ENCOUNTER → 2025-03-06 11:48 | Outpatient (BNVA) | payer OTHER, SELFPAY | PROVIDERS: PCP Student in an Organized Health Care Education/Training Program; Visit Provider Internal Medicine Hypertension Specialist | DX: I10 Essential (primary) hypertension (principal); R31.9 Hematuria, unspecified | CPT/HCPCS: 99212 ==

== ENCOUNTER 2025-05-03 09:15 | Day surgery (SDC) | payer OTHER, SELFPAY ==
--- OUTSIDE RECORDS SUMMARY | 2025-01-04 15:55 | XMS_ITS | Clinical Summary ---
Author Organization [employer] Address [address] [facility] 7[address] [place] [address] Care Team Providers Care Senior Windows Administrator Name Role Phone Jyoti Apple MD Primary Care Provider [phone] Allergies Active Allergy Reactions Criticality Noted Date Comments Penicillins 12/21/2023 Medications * This document contains information received from the source organization and may not represent a complete record from that organization. lisinopril 40 MG tablet Take 1 tablet (40 mg) by mouth in the morning. 90 tablet 3 12/21/2023 Active hydroCHLOROthiaz sanjiv (HYDRODiuril) 25 MG tablet Take 1 tablet (25 mg) by mouth in the morning. 90 tablet 3 12/21/2023 Active hydrALAZINE (Apresoline) 10 MG tablet Take 1 tablet (10 mg) by mouth in the morning. 90 tablet 3 12/21/2023 Active cloNIDine (Catapres) 0.1 MG tablet Take 1 tablet (0.1 mg) by mouth every 8 (eight) hours. 270 tablet 3 12/21/2023 Active amLODIPine (Norvasc) 10 MG tablet Take 1 tablet (10 mg) by mouth in the morning. 90 tablet 3 12/21/2023 Active omeprazole (PriLOSEC) [address] Austin ns:Gastroesophag eal reflux disease without esophagitis TAKE 1 CAPSULE BY MOUTH EVERY DAY BEFORE A MEAL 90 capsule 11/24/2024 Active Encounters * This document contains information received from the source organization and may not represent a complete record from that organization. Date Type Department Care Team Description 11/24/2024 Refill [facility] [address] [place] [address] Jyoti Apple MD Gastroesophageal reflux disease without esophagitis from Last 3 Months Social History Tobacco Use Types Packs/Day Years [...] * (ABNORMAL) CBC (11/03/2024 9:06 AM EST) Pathologist [facility] White Blood Count 5.3 4.8 - 10.8 X10*3/uL [facility] Red Blood Count 5.11 4.60 - 5.80 X10*6/uL [facility] Hemoglobin 16.1 14.0 - 18.0 g/dl [facility] Hematocrit 45.0 42.0 - 52.0 % [facility] Mean Corpuscular Volume 88.1 80.0 - 98.0 fL [facility] Mean Corpuscular Hemoglobin 31.5 27.0 - 33.0 pg [facility] Mean Corpuscular HGB Conc 35.8 31.0 - 36.0 g/dl [facility] Red Cell Distribution Width 10.5(L) 11.0 - 16.0 % [facility] Platelet Count 151(L) 160 - 400 X10*3/uL [facility] Mean Platelet Volume 12.0 9.4 - 12.4 fL [facility] NRBC Pct Auto 0.0 0.0 - 0.2 /100WBC [facility] NRBC Abs Auto 0.000 0.0 - 0.012 X10*3/uL [facility] 11/03/2024 9:06 AM EST 11/03/2024 9:06 AM EST us Generic External Data Provider LAB BLOOD ORDERAB LES Final Result [facility] [address] [place] [phone] * (ABNORMAL) Basic Metabolic Panel (11/03/2024 9:06 AM EST) [facility] Sodium 137 135 - 145 mmol/L [facility] Potassium 4.6 3.3 - 5.1 mmol/L [facility] Chloride 105 96 - 108 mmol/L [facility] Carbon Dioxide 26 22 - 29 mmol/L [facility] Anion Gap 11(L) 12 - 20 [facility] Urea Nitrogen (BUN) 12 9 - 16 mg/dL [facility] Creatinine, Serum 0.75 0.5 - 1.4 mg/dL [facility] Estimated Glomerular Filt Rate >60 [facility] Comment:Chronic Kidney Disea se: Estimated GFR < 60 mL/min/1.69v0Gthomx Kidney Disease: Estimated GFR < 15 mL/min/1.73m2 Glucose 136(H) 60 - 115 mg/dL [facility] Calcium 9.6 8.4 - 10.2 mg/dL [facility] 11/03/2024 9:06 AM EST 11/03/2024 9:06 AM EST us Generic External Data Provider LAB BLOOD ORDERAB LES Final Result Performing Organization Address City/State/[facility] Co de Phone Number [facility] [address] [place] [phone] * (ABNORMAL) LIPID PANEL, STANDARD (09/26/2021 [...] ?? Subhash QUINTANA et al. GAVI[place]. 2013;310(19): 9925-4969 ?? (http://education.Naldo/faq/JSF710) Non-HDL Cholesterol 133(H) <130 mg/dL (calc) [facility] Comment: For patients with diabetes plus 1 major ASCVD risk ?? factor, treating to a non-HDL-C goal of <100 mg/dL ?? (LDL-C of <70 mg/dL) is considered a therapeutic ?? option. Triglycerides 69 <150 mg/dL [facility] 09/26/2021 10:2 6 AM EST Jyoti Apple MD LAB BLOOD ORDERABLES Final Resul t [facility] [address] * Colonoscopy (07/03/2018) Colonoscopy Normal Normal Historical Provider HEALTH MAINTENANCE Final Result from Last 3 Months or Most Recently Relevant to Health Maintenance Insurance [facility] [address] [place] [id number] [place] [id number] Care Teams Senior Windows Administrator Relationship Specialty Start Date End Date Jyoti Apple MD [address] [facility] [place] [phone] PCP - General Family Medicine 08/22/12
[2025-01-12 13:56] VITALS: BMI 29.5
[2025-05-01 12:16] VITALS: BMI 28.8
--- NOTE | 2025-05-02 13:35 | P.CONAN_ITS ---
Documented by User: Jessika Monae NP 05/02/25 13:35 HPI - Anesthesia Eval Consult details Narrative: 64yo M for Upper Endoscopy and Colonoscopy [facility] Active Problems Active Problems: All Active Problems Elevated blood sugar (Acute) HTN (hypertension) (Acute) Hematuria (Acute) GERD (gastroesophageal reflux disease) (Acute) Reinoso's esophagus (Acute) Past Medical History Medical History Barretts esophagus GERD (gastroesophageal reflux disease) HTN (hypertension) Surgical History Surgical History Hx of colonoscopy History of arthroplasty of right hip History of esophagogastroduodenoscopy (EGD) Social History Social History Are you a primary resident care provider to a significant other at home: No Do you presently have visiting nurse or other home services: No Patient Tobacco Use Status: Never used Tobacco Use of substances other than those prescribed or required for medical reasons: No Have you been hit, kicked, punched, or otherwise hurt by someone within the past year? If so, by whom?: No Are you DNR?: No Advance Directives: No Advance Directives Information Provided: Yes Poor oral hygiene: No Meds Allergies Allergy/AdvReac Type Severity Reaction Status Date / Time Penicillins Allergy Severe SWELLING Verified 05/03/25 10:26 latex (LATEX) Allergy Intermediate RASH Verified 05/03/25 10:26 Home Medications ?Medication ?Instructions ?Recorded ?Confirmed ?Last Taken ?Type omeprazole 40 mg capsule,delayed 40 mg PO DAILY 03/06/25 Unknown History release Exam Height,Weight and Vital Signs: Height 5 ft 5 in Weight 78.471 kg Assessment and Plan Assessment Anesthesia Assessment: Chart Reviewed Documented by User: Earline García MD 05/03/25 10:45 [facility] Past Medical History Medical History Barretts esophagus GERD (gastroesophageal reflux disease) HTN (hypertension) Family History Family history of problems with anesthesia: No Surgical History Surgical History Hx of colonoscopy History of arthroplasty of right hip History of esophagogastroduodenoscopy (EGD) History of Problems with Anesthesia: No Social History Social History Are you a primary resident care provider to a significant other at home: No Do you presently have visiting nurse or other home services: No Patient Tobacco Use Status: Never used Tobacco Use of substances other than those prescribed or required for medical reasons: No Have you been hit, kicked, punched, or otherwise hurt by someone within the past year? If so, by whom?: No Are you DNR?: No Advance Directives: No Advance Directives Information Provided: Yes Poor oral hygiene: No Meds Allergies Allergy/AdvReac Type Severity Reaction Status Date / Time Penicillins Allergy Severe SWELLING Verified 05/03/25 10:26 latex (LATEX) Allergy Intermediate RASH Verified 05/03/25 10:26 Home Medications ?Medication ?Instructions ?Recorded ?Confirmed ?Last Taken ?Type omeprazole 40 mg capsule,delayed 40 mg PO DAILY 03/06/25 Unknown History release Exam Airway Mallampati Class: III TM Dist: <=3cm Neck ROM: Full Heart: rrr Lungs: cta Assessment and Plan Assessment Anesthesia Assessment: Anesthesia Plan Discussed Final Anesthetic Review Family History of Problems with Anesthesia: No History of Problems with Anesthesia: No NPO: Yes ASA Class: III Final Preanesthetic Review: No Changes in Pt Med Stat, Meds/Allgs Chart Reviewed, Consent Obtained/Reviewed and Anes Risks/Benef Reviewed Patient Risk: Intermediate Procedure Risk: Low Anesthetic Plan Anesthetic Plan: MAC: and Agree w/ Assess. and Plan Disposition: Standard PACU
--- NOTE | 2025-05-03 09:40 | MHC.SHP ---
Pre-Procedural Eval Section A - 24 Hr Update-Section A only Date of Service: 05/03/25 Section B - Complete if H&P > 30 days Chief Complaint: Gastro-esophageal reflux disease without esophagit Details of Present Illness: hx of colon polyps Relevant Family History (Specify if Yes): No Relevant Social History: None Present Medications: see Short Stay Collaborative assessment Medical History: Significant History (Barretts esophagus GERD (gastroesophageal reflux disease) HTN (hypertension)) History of Previous Operations: Relevant previous surgery/procedure and date(s) ( Hx of colonoscopy History of arthroplasty of right hip History of esophagogastroduodenoscopy (EGD)) Allergies: Allergies Allergy/AdvReac Type Severity Reaction Status Date / Time Penicillins Allergy Severe SWELLING Verified 03/06/25 11:51 latex (LATEX) Allergy Intermediate RASH Verified 03/06/25 11:51 Review of Systems Sugical H&P ROS: Negative: Constitution, Cardiovascular, Respiratory, Neurological, Psychiatric, Hem-Onc, Allergic/Immunologic, Gastrointestinal, Genitourinary, Musculoskeletal, Integumentary, Endocrine and Eyes/Ears/Nose/Throat Exam Surgical H&P Exam: Normal: HEENT, Normal: Heart, Normal: Lungs, Normal: Extremities, Normal: Abdomen, Normal: Skin and Normal: Neurological Plan Diagnosis/Plan: Unchanged I have reviewed the history and physical and performed a pertinent physical examination on my patient. No changes have occurred unless specified. Time Spent With Patient Time: Total time managing care of this patient today ____ minutes.
[2025-05-03 10:22] VITALS: BP 155/94; PULSE 87; RESP 14; TEMP 37; O2SAT 97; BMI 29.0
[2025-05-03] MEDS: Lactated Ringers 1,000 ML 100 ML IVCONT (10:34)
--- NOTE | 2025-05-03 11:48 | P.OPN-COLO_ITS ---
Colonoscopy Operative Note Operative Note Date of Service: 05/03/25 Narrative: Operative Information Procedure Description: EGD, Colonoscopy Indication: GERD, hx of colonic polyps Anesthesia: MAC FLEXIBLE TRANSORAL UPPER GASTROINTESTINAL ENDOSCOPY AND COLONOSCOPY PROCEDURE NOTE UPPER ENDOSCOPY Consent: Indications for the procedure and potential complications of bleeding, perforation, reaction to medications and missed diagnosis were discussed with the patient and informed consent was obtained. Instrument: Olympus GIF H 190 J mid size upper endoscope Monitoring: Vital signs and clinical assessment, continuous EKG monitoring, Pulse oximetry, Carbon Dioxide monitoring and blood pressure monitoring were done throughout the procedure. Procedure: The patient was placed in the left lateral decubitis position and pre-procedure medications were administered and a bite block was placed. The endoscope was inserted into the mouth and advanced under direct vision to the third part of duodenum. A careful inspection was made as the upper endoscope was withdrawn including a retroflexed examination of the proximal stomach; Findings and interventions are described below. Findings: Larynx:normal Esophagus: GE junction at 37 cm, diaphragm hiatus at 39 cm, schatzki ring noted and 2 cm hiatal hernia with patulous GEJ, Distal esophagus with erythema and possible jose, bx taken Stomach: Patchy erythema, Biopsies were obtained. Grade 2 flap valve on retroflexed examination of the cardia. x 2 polyps noted in mid body 7-9 mm removed with cold snare Duodenum: Normal bulb and descending duodenum, Intervention: Biopsies as noted above, cold snare COLONOSCOPY Instrument: Olympus variable stiffness pediatric scope 190L Colonoscopy Monitoring: Vital signs and clinical assessment, continuous EKG monitoring, Pulse oximetry, Carbon Dioxide monitoring and blood pressure monitoring were done throughout the procedure. Colon withdrawal time was 23 minutes. Procedure: The patient was placed in the left lateral decubitis position and pre-procedure medications were administered. After a digital rectal examination of the ano-rectum, the video colonoscope was inserted into the rectum and advanced through the colon to the cecum/TI. The colonoscope was slowly withdrawn in a retrograde panoramic fashion and the colon mucosa was carefully examined including a retroflexed view of the rectum. Findings and interventions are described below. Procedure Difficulty:moderate Findings: Terminal Ileum-normal Cecum: 14-16 mm sessile polyp lifted with eleview and removed with hot snare. Some residual tissue removed with cold forceps. Ascending Colon: normal Transverse Colon -normal Descending Colon:normal Sigmoid Colon: normal Rectum: Retroflexion with small internal hemorrhoids, grade I Anorectum - normal Colon preparation: [place] Bowel Preparation Scale Right colon; 2 Transverse colon: 2 Left colon; 2 (0 = Unprepared colon segment with mucosa not seen due to solid stool that cannot be cleared. 1 = Portion of mucosa of the colon segment seen, but other areas of the colon segment not well seen due to staining, residual stool and/or opaque liquid. 2 = Minor amount of residual staining, small fragments of stool and/or opaque liquid, but mucosa of colon segment seen well. 3 = Entire mucosa of colon segment seen well with no residual staining, small fragments of stool or opaque liquid) Impression and Post Procedure Diagnosis: Endoscopy Findings: hiatal hernia esophagitis gastritis lax LES Colonoscopy Findings: colon polyp internal hemorrhoids Plan: Await Pathology results Repeat Colonoscopy in 1 year or earlier if clinically indicated High fiber diet leaflet avoid straining at stool, epsom salts and sitz bath, anusol supps or cream if jose pos then treat Above findings were reviewed with the patient and relevant handouts were provided if indicated.
[2025-05-03 11:58] VITALS: BP 117/80; PULSE 79; RESP 20; TEMP 36.8; O2SAT 96
[2025-05-03 12:13] VITALS: BP 125/82; PULSE 69; RESP 18; TEMP 36.6; O2SAT 97
== END 2025-05-03 12:39 | disposition home or self-care (01) ==
PROVIDERS: PCP Student in an Organized Health Care Education/Training Program; Visit Provider Internal Medicine Gastroenterology
PROC: (CPT 45385; principal; 2025-05-03 12:30)
DX: Z12.11 Encounter for screening for malignant neoplasm of colon (principal); D12.0 Benign neoplasm of cecum; K64.0 First degree hemorrhoids; Z86.0101 Personal history of adenomatous and serrated colon polyps; K21.9 Gastro-esophageal reflux disease without esophagitis; K22.2 Esophageal obstruction; K22.81 Esophageal polyp; B37.81 Candidal esophagitis; K22.89 Other specified disease of esophagus; K29.60 Other gastritis without bleeding; K44.9 Diaphragmatic hernia without obstruction or gangrene; I10 Essential (primary) hypertension; Z79.899 Other long term (current) drug therapy
CPT/HCPCS: 45385; 45380; 45381; 43251; 43239; 88305; 88313; 88342; J2003; J2704; J3010

== ENCOUNTER → 2025-05-03 09:15 | Outpatient (BNV) | payer OTHER, SELFPAY | PROVIDERS: PCP Student in an Organized Health Care Education/Training Program; Visit Provider Internal Medicine Gastroenterology | DX: Z12.11 Encounter for screening for malignant neoplasm of colon (principal); Z86.0100 Personal history of colon polyps, unspecified; D12.0 Benign neoplasm of cecum; K21.00 Gastro-esophageal reflux disease with esophagitis, without bleeding; K64.0 First degree hemorrhoids; K29.70 Gastritis, unspecified, without bleeding; K22.4 Dyskinesia of esophagus; K31.7 Polyp of stomach and duodenum | CPT/HCPCS: 43239; 43251; 45381; 45385 ==

== ENCOUNTER 2025-07-03 11:46 | Outpatient (AMB) | payer OTHER, SELFPAY ==
[2025-07-03 11:49] VITALS: BP 158/88; BMI 28.8
--- NOTE | 2025-07-03 11:49 | HO.NEPHOV_ITS ---
Vital Signs 07/03/25 11:49 07/03/25 11:59 Height 5 ft 5 in Weight 173 lb BMI 28.8 BP 158/88 H 140/82 H Blood Pressure Location Rt brachial Rt brachial Position Sitting Sitting Intake Visit Reasons: 3mon follow-up w/labs confirmed Entry Level Project Engineer Required: Yes Entry Level Project Engineer Name: Kristine Srivastava Accompanied by: Self / Same As Patient Allergies Penicillins Allergy (Severe, Verified 07/03/25 11:51) SWELLING latex (LATEX) Allergy (Intermediate, Verified 07/03/25 11:51) RASH Medication List - Last Reconciled 07/03/25 by Edmund Loyd MD amlodipine 10 mg PO DAILY bisacodyl (Dulcolax (bisacodyl)) 10 mg (2 x 5 mg) PO BEDTIME hydralazine 25 mg PO BID lisinopril 40 mg PO DAILY omeprazole 40 mg PO DAILY polyethylene glycol 3350 (Miralax) 238 grams PO ONCE spironolacton-hydrochlorothiaz 25-25 mg 1 tab PO DAILY HPI Comments Details: Saran is a pleasant middle-aged man with a history of hypertension. Recently he had accelerated hypertension and compliance has been an issue. He has been referred for evaluation of hypertension and microscopic hematuria. He has no gross hematuria. No pain during urination. No history of kidney stones. No leg edema. No shortness of breath. No nausea vomiting. No rash. No joint pain. All other systems were reviewed. He does not smoke. He drinks 3-6 cans of beer almost every day. Entry Level Project Engineer service was used. 02/01/2024. Overall doing well. He did not take his antihypertensive medication today. He is cut down beer intake to 2 cans per day. 07/13/2024. Complains of dizziness and dry mouth with clonidine; He is tolerating Aldactazide well. 11/07/24 ;No futher dry mouth or dizziness;Takes hydralazine 10 mg QD withother meds 01/09/25 Has been taking Hydralazine only once a day No new issued today 03/06/25 The patient is a 64-year-old male presenting for management of hypertension. The patient reports taking medications including amlodipine, hydralazine, lisinopril, and spironolactone, with no changes in his regimen recently. He denies experiencing any side effects such as lightheadedness or dizziness upon standing. The patient consumes one to two alcoholic drinks per day and has been advised to limit salt intake and maintain adequate hydration. 07/03/25 - The patient is a 64-year-old male presenting with hypertension. - Persistent hypertension with morning elevations. - On amlodipine, hydralazine, lisinopril, spironolactone. - Adheres to medication and low-salt diet. - Blood pressure improved to 140/80 mmHg. Does not consume any alcohol at the present time [facility] Medical History Barretts esophagus GERD (gastroesophageal reflux disease) HTN (hypertension) Surgical History Hx of colonoscopy History of arthroplasty of right hip History of esophagogastroduodenoscopy (EGD) Social History Are you a primary ocular care technician to a significant other at home: No Do you presently have visiting nurse or other home services: No Patient Tobacco Use Status: Never used Tobacco Physical Exam Vital Signs: Last Vital Signs BP 140/82 H 07/03/25 11:59 BMI result Body Mass Index 28.8 Results Reviewed Nephrology Results: Hgb, (14.0-18.0) 16.1 g/dl 11/03/24 WBC, (4.8-10.8) 5.3 X10*3/uL 11/03/24 Plt Count, (160-400) 151 X10*3/uL L 11/03/24 Sodium, (135-145) 137 mmol/L 11/03/24 Potassium, (3.3-5.1) 4.6 mmol/L Δ 11/03/24 Chloride, (96-108) 105 mmol/L 11/03/24 Carbon Dioxide, (22-29) 26 mmol/L 11/03/24 BUN, (9-16) 12 mg/dL 11/03/24 Creatinine, (0.5-1.4) 0.75 mg/dL 11/03/24 Calcium, (8.4-10.2) 9.6 mg/dL 11/03/24 Renal US 01/07/24 Assessment & Plan Assessment & Plan (1) HTN (hypertension): Code(s): I10 - Essential (primary) hypertension Category: Medical (2) Hematuria: Code(s): R31.9 - Hematuria, unspecified Category: Medical Plan Saran is a 64-year-old man with a history of longstanding hypertension with microscopic hematuria. Urinalysis did not reveal any hematuria or proteinuria Urinalysis revealed glycosuria. Blood sugar was 156 millimoles Repeat Glucose was 126 with A1C of 5.2% Initial reading was elevated Repeat was better No chnages today Encouraged him to stay on low-sodium diet He should cut back on alcohol intake. Discussed importance of compliance. Orders: Orders UA and rflx microscopic Today I10 - Essential (primary) hypertension, R31.9 - Hematuria, unspecified Basic Metabolic Panel Today I10 - Essential (primary) hypertension, R31.9 - Hematuria, unspecified Creatinine Urine Today I10 - Essential (primary) hypertension, R31.9 - Hematuria, unspecified Total Protein Urine Random Today I10 - Essential (primary) hypertension, R31.9 - Hematuria, unspecified Coding Level of Care Code Est Pt Level 4 (19889) Diagnoses HTN (hypertension) I10 Hematuria R31.9
[2025-07-03 11:59] VITALS: BP 140/82
--- OUTSIDE RECORDS SUMMARY | 2025-07-03 15:13 | XMS_ITS | Clinical Summary ---
Author Organization [employer] Address [address] [address] [place] [address] Care Team Providers Care Brim Blocker Name Role Phone Moiz Arias PAULA Primary Care Provider [phone] Allergies Active Allergy Reactions Criticality Noted Date Comments Latex Anaphylaxis High 12/26/2014 Penicillins Swelling 12/21/2023 Medications * This document contains information received from the source organization and may not represent a complete record from that organization. amLODIPine (Norvasc) 10 MG tablet Take 1 tablet (10 mg) by mouth Once per day. 90 tablet 3 05/11/2025 05/11/20 26 Active hydrALAZINE (Apresoline) 25 MG tablet Take 1 tablet (25 mg) by mouth 2 times daily. 60 tablet 11 05/11/2025 05/11/20 26 Active omeprazole (PriLOSEC) [address] [place] ns:Gastroesophag eal reflux disease without esophagitis TAKE 1 CAPSULE BY MOUTH EVERY DAY BEFORE A MEAL 90 capsule 05/11/2025 Active spironolactone-h ydroCHLOROthiazi de (Aldactazide) 25-25 MG tablet Take 1 tablet (25 mg) by mouth Once per day. 30 tablet 11 05/11/2025 Active Active Problems Problem Noted Date Diagnosed Date Benign hypertension 03/03/2018 Gastroesophageal reflux disease without esophagi tis 02/02/2018 Encounters * This document contains information received from the source organization and may not represent a complete record from that organization. Date Type Department Care Team Description 05/11/2025 10:45 AM EDT Office Visit [facility] [address] [place] [id number] Jyoti Apple MD Primary hypertension (Primary Dx); Gastroesophageal reflux disease without esophagitis; Adenomatous polyp of colon, unspecified part of colon 05/11/2025 Travel 05/10/2025 Telephone [facility] [address] [place], [place] [id number] Jyoti Apple MD Chart Prep from Last 3 Months Social History Tobacco Use Types Packs/Day Years Used Date Smoking Tobacco: Never Smokeless Tobacco: Never Tobacco Cessation:Counseling Given: Not Answered Depression Answer Date Recorded Patient Health Questionnaire-9 Score 0 05/11/2025 Patient Health Questionnaire-9 Score 0 05/11/2025 Last PHQ-9: Questionnaire Data Not on file 0 05/11/2025 Housing Stability Answer Date Recorded What is [...] off services in your home? No 11/29/2023 Depression Answer Date Recorded Patient Health Questionnaire-2 Score 0 05/11/2025 Sex and Gender Information Value Date Recorded Sex Assigned at Male 07/06/2022 10:20 AM EDT Legal Sex Male 10:20 AM EDT Gender Identity Male 07/06/2022 10:20 AM EDT Sexual Orientation Straight 07/06/2022 10 :20 AM EDT Last Filed Vital Signs Vital Sign Reading Time Taken Comments Blood Pressure 152/90 05/11/2025 10:41 AM EDT Manually checked Pulse 83 05/11/2025 10:41 AM EDT Temperature 36.6 C (97.8 F) 05/11/2025 10:41 AM EDT Respiratory Rate 18 05/11/2025 10:4 1 AM EDT Oxygen Saturation - - Inhaled Oxygen Concentration - - Weight 78.9 kg (174 lb) 05/11/2025 10:4 1 AM EDT Height 165.1 cm (5' 5 ) 05/11/2025 10:4 1 AM EDT Body Mass Index 28.96 05/11/2025 10:41 AM EDT Plan of Treatment Health Maintenance Due Date Last Done Comments CT Colonography 1960 FIT DNA/Cologuard 1960 FIT 1960 FOBT 1960 HIV Screening 1960 Sigmoidoscopy 1960 Hepatitis C Screening 1979 DTaP/Tdap/Td Vaccines (1 - Tdap) 1980 Pneumococcal Vaccine: 50+ Years (1 of 1 - PCV) 2011 Zoster Vaccines (1 of 2) 2011 SDOH Screening 11/28/2024 11/29/2023 COVID-19 Vaccine (3 - 2024-2 6 season) 2025 05/06/2021, 04/14/2021 Influenza Vaccine (#1) 2025 Alcohol/Substance Use Screening 05/11/2026 05/11/2025 Depression Screening 05/11/2026 05/11/2025, 05/11/2025 Disability Screening 05/11/2026 05/11/2025 Tobacco Screening 05/11/2026 05/11/2025 Lipid Panel 09/26/2026 09/26/2021 Colonoscopy 05/03/2028 05/03/2025, 07/03/2018 Colorectal Cancer Screening 05/03/2028 RSV Patients and Patients Aged 60 years [...] Procedure Name Priority Date/Time Associated Diagnosis Comments HEMATOXYLIN AND EOSIN STAIN Routine 05/03/2025 11:09 AM EDT Encounter for screening for malignant neoplasm of colon HM COLONOSCOPY Routine 05/03/2025 LIPID PANEL, STANDARD Routine 09/26/2021 10:26 AM EST from Last 3 Months or Most Recently Relevant to Health Maintenance Results * Hematoxylin and Eosin Stain (05/03/2025 11:09 AM EDT) 05/03/2025 11:0 9 AM EDT 05/03/2025 12:41 PM EDT [facility] - 05/08/2025 12:03 PM EDT ----- ------- Name: Saran Duong Age/Sex: 64/M : 1960 Unit#: [id number] Attend Dr: Cody Chung MD Re05/03/25 Status: [facility] [place]: [facility] Disch: ----- ------- SPEC : [id number] RECD: 05/03/25-1240 STATUS: ELSI SERRANO NUM: [id number] KATLYN: 05/03/25-[address] [facility] [address]: Cody Chung MD ENTERED: 05/03/25-1257 SP TYPE: Surgical OTHR DR: Jyoti Apple MD ORDERED: HE Stain/15, Gross Micro L4/5, IHC/2, Special st. 2/4, H. pylori/2, AB/PAS/4 Diagnosis A. Stomach, biopsy: - Reactive gastropathy (antral tissue) with background mild chronic inactive inflammation. - Oxyntic mucosa with mild chronic inactive inflammation. - No Helicobacter organisms identified. B. Stomach, polypectomies (2): Hyperplastic mucosal polyps with background chronic inactive inflammation; no Helicobacter organisms identified. C. EG junction, biopsy: - Cardiac-type mucosa with mild chronic inactive inflammation; no intestinal metaplasia seen. - Squamous epithelium within normal limits. D. Esophagus, distal medial, biopsy: - Cardiac-type mucosa with mild chronic inactive inflammation; no intestinal metaplasia seen. - Margarette esophagitis. - Separate fragments of squamous epithelium within normal limits. E. Cecum, polypectomy: Fragments of tubular adenoma; negative for high-grade dysplasia or carcinoma. Clinical History Pre-Op Dx: Gastro-esophageal reflux disease Post-Op Dx: Upper: gastritis, gastric polyps, esophagitis, hiatal hernia, Schatzki's ring; Lower: colon polyp hemorrhoids Microscopic Description A-E. Microscopic sections examined. No metaplastic changes are seen, supported by AB/PAS stains (A, B, C and D); no Helicobacter organisms are seen, supported by H. pylori immunostain (A and B). Material Received A. Stomach bx's B. Gastric polyps x2 C. EG junction bx's D. Distal and medial esophagus bx's E. Cecal polyp CONTINUED ON NEXT PAGE ----- ------- Name: Saran Duong Age/Sex: 64/M : 1960 [facility]#: [id number] Unit#: [id number] Attend Dr: Cody Chung MD Re05/03/25 Status: [facility] [place] Location: [facility] Disch: ----- ------- SPEC : [id number] RECD: 05/03/25-1241 STATUS: ELSI CAMPOS NUM: [id number] KATLYN: 05/03/25-[address] [facility] [address]: Cody Chung MD ENTERED: 05/03/25-1256 SP TYPE: Surgical OTHR DR: Jyoti Apple MD ORDERED: HE Stain/15, Gross Micro L4/5, IHC/2, Special st. 2/4, H. pylori/2, AB/PAS/4 Gross Description Received in 5 parts. A. Received in formalin labeled stomach biopsies are 8 fragments of cueva-white soft tissue measuring 0.1-0.3 cm in greatest dimension which are wrapped in lens paper and entirely submitted for microscopic examination, 8 pieces in cassette A. B. Received in formalin labeled gastric polyps x2 are 7 fragments of pink white soft tissue measuring 0.2-0.9 cm in greatest dimension which are wrapped in lens paper and entirely submitted for microscopic examination, 7 pieces in cassette B. C. Received in formalin labeled GE junction biopsies are 2 fragments of translucent, white soft tissue measuring 0.2 and 0.2 cm in greatest dimension which are wrapped in lens paper and entirely submitted for microscopic examination, 2 pieces in cassette C. D. Received in formalin labeled distal and medial esophagus biopsies are 7 fragments of translucent, white soft tissue measuring 0.1-0.3 cm in greatest dimension which are wrapped in lens paper and entirely submitted for microscopic examination, 7 pieces in cassette D. E. Received in formalin labeled cecal polyp is a polypoid portion of red-pink soft tissue measuring 1.2 x 1.0 x 0.8 cm in greatest dimension. The outer surface is smooth and glistening. Base shows a cueva-white resection site that is grossly unremarkable. The base is inked blue. Bisected, wrapped in lens paper and entirely submitted for microscopic examination,. Received in the same container are 2 fragments of cueva-white soft tissue measuring 0.3 and 0.4 cm in greatest dimension which are submitted in the same cassette for a total of 5 pieces. ([facility]) Special studies ordered and performed: Immunostain for H. pylori on A and B; AB/PAS stains on A, B, C and D IHC S/NG Disclaimer NOTE: Unless otherwise stated, all tissue is formalin-fixed and paraffin-embedded. Some or all of the immunohistochemical tests reported herein may have been developed and their performance characteristics determined by [facility]. They have not been cleared or approved by the U.S. Food and Drug Administration (FDA). However, the FDA has determined that such clearance or approval is not necessary. This laboratory is certified under the Clinical Laboratory Improvement Amendments of 1988 (CLIA) as qualified to perform high complexity clinical laboratory testing. CONTINUED ON NEXT PAGE ----- ------- Name: Saran Duong Age/Sex: 64/M : 1960 Unit#: [id number] Attend Dr: Cody Chung MD Re05/03/25 Status: [facility] [place] Location: [facility] Disch: ----- ------- SPEC : [id number] RECD: 05/03/25-1240 STATUS: ELSI SERRANO NUM: [id number] KATLYN: 05/03/25-[address]: Cody Chung MD ENTERED: 05/03/25-1257 SP TYPE: Surgical OTHR DR: Jyoti Apple MD ORDERED: HE Stain/15, Gross Micro L4/5, IHC/2, Special st. 2/4, H. pylori/2, AB/PAS/4 Copies To: Cody Chung MD [facility] [address] [place] [address] [id number] Jyoti Apple MD [address] [id number] ----- ------- Signed (signature on file) Kimo Neves MD 05/08/25 1203 ----- ------- END OF REPORT us Generic External Data Provider LAB BLOOD ORDERAB LES Final Result [facility] [address] [place] [address] [phone] * (ABNORMAL) Colonoscopy (05/03/2025) Colonoscopy Abnormal(A ) Normal Jyoti Apple MD HEALTH MAINTENANCE Final Result * (ABNORMAL) LIPID PANEL, STANDARD (09/26/2021 10:26 [...] equation in the estimation of LDL-C. Subhash SS et al. [place]AV[place]. 2013;310(19): 5669-3573 (http://education.[employer]/faq/JUH063) Non-HDL Cholesterol 133(H) <130 mg/dL (calc) [facility] Comment: For patients with diabetes plus 1 major ASCVD risk factor, treating to a non-HDL-C goal of <100 mg/dL (LDL-C of <70 mg/dL) is considered a therapeutic option. Triglycerides 69 <150 mg/dL [facility] 09/26/2021 10:2 6 AM EST Jyoti Apple MD LAB BLOOD ORDERABLES Final Resul t [facility] [address] from Last 3 Months or Most Recently Relevant to Health Maintenance Insurance [facility] < [address] [id number] Care Teams Brim Blocker Relationship Specialty Start Date End Date Moiz Arias CNP PCP - General Family Medicine 05/16/25
== END 2025-07-03 12:05 | disposition home or self-care (01) ==
LOC: HO.HKA 11:47
PROVIDERS: PCP Student in an Organized Health Care Education/Training Program; Visit Provider Internal Medicine Hypertension Specialist
DX: I10 Essential (primary) hypertension (principal); R31.9 Hematuria, unspecified
CPT/HCPCS: 99214

== ENCOUNTER → 2025-07-03 11:46 | Outpatient (BNVA) | payer OTHER, SELFPAY | PROVIDERS: PCP Student in an Organized Health Care Education/Training Program; Visit Provider Internal Medicine Hypertension Specialist | DX: I10 Essential (primary) hypertension (principal); R31.9 Hematuria, unspecified | CPT/HCPCS: 99212 ==